=== PATIENT | male | born 1965 | race Caucasian/White ===

== ENCOUNTER 2020-04-15 12:55 | Emergency (ER) | payer OTHER ==
[~2020-04-15] VITALS: Ht 167 cm; Wt 84.8 kg
--- NOTE | 2020-04-15 13:28 | ED Integumentary General ---
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 States he felt dizzy after incident from pain. Last tetanus 4 months ago. No other complaints. Timing/Duration: just prior to arrival Severity: mild Allergies and Home Medications Allergies Coded Allergies: Penicillins (Verified Allergy, Unknown, 04/15/20) Home Medications Sulfamethoxazole/Trimethoprim 1 Each Tablet, 1 EACH PO BID Prescribed by: EDIE SALEH on 04/15/20 1340 Patient Home Medication List Home Medication List Reviewed: Yes Review of Systems Review of Systems Constitutional: no symptoms reported EENTM: no symptoms reported Respiratory: no symptoms reported Cardiovascular: no symptoms reported Gastrointestinal: no symptoms reported Genitourinary: no symptoms reported Musculoskeletal: no symptoms reported Skin: see HPI Psychiatric/Neurological: No Symptoms Reported Endocrine: No Symptoms Reported Hematologic/Lymphatic: No Symptoms Reported Past Baqgdjh-Lftlpy-Oxdnje Hx Patient Social History Recent Foreign Travel: No Contact w/Someone Who Travel: No Physical Exam Vital Signs Vital Signs - First Documented 04/15/20 13:28 Temp 36.8 Pulse 67 Resp 18 B/P (MAP) 177/81 (113) Pulse Ox 99 Capillary Refill : General Appearance: WD/WN, no apparent distress HEENT: PERRL/EOMI, pharynx normal Neck: full range of motion, normal inspection Cardiovascular: regular rate, rhythm, no murmur Respiratory: lungs clear, normal breath sounds Extremities: normal range of motion, non-tender, normal inspection, normal capillary refill Neurologic/Psychiatric: no motor/sensory deficits, alert, normal mood/affect, oriented x 3 Skin: normal color, warm/dry Skin Problem Location: other (distal tip of left fifth finger) Skin Problem Character: other ( partial avulsion of left fifth finger nail plate. Neurovascular intact distal to injury. ) Progress/Results/Core Measures Results/Orders Lab Results Laboratory Tests Test 04/15/20 13:15 Range/Units White Blood Count 17.0 H 4.3-11.0 10^3/uL Red Blood Count 3.53 L 4.30-5.52 10^6/uL Hemoglobin 9.3 L 13.3-17.7 g/dL Hematocrit 30 L 40-54 % Mean Corpuscular Volume 84 80-99 fL Mean Corpuscular Hemoglobin 26 25-34 pg Mean Corpuscular Hemoglobin Concent 31 L 32-36 g/dL Red Cell Distribution Width 13.9 10.0-14.5 % Platelet Count 350 130-400 10^3/uL Mean Platelet Volume 10.8 9.0-12.2 fL Immature Granulocyte % (Auto) 0 % Neutrophils (%) (Auto) 75 42-75 % Lymphocytes (%) (Auto) 14 12-44 % Monocytes (%) (Auto) 9 0-12 % Eosinophils (%) (Auto) 2 0-10 % Basophils (%) (Auto) 1 0-10 % Neutrophils # (Auto) 12.7 H 1.8-7.8 10^3/uL Lymphocytes # (Auto) 2.4 1.0-4.0 10^3/uL Monocytes # (Auto) 1.5 H 0.0-1.0 10^3/uL Eosinophils # (Auto) 0.3 0.0-0.3 10^3/uL Basophils # (Auto) 0.1 0.0-0.1 10^3/uL Immature Granulocyte # (Auto) 0.1 0.0-0.1 10^3/uL Neutrophils % (Manual) 72 % Lymphocytes % (Manual) 16 % Monocytes % (Manual) 5 % Eosinophils % (Manual) 5 % Basophils % (Manual) 0 % Band Neutrophils 1 % Reactive Lymphocytes 1 % Polychromasia SLIGHT Sodium Level 138 135-145 MMOL/L Potassium Level 4.0 3.6-5.0 MMOL/L Chloride Level 106 98-107 MMOL/L Carbon Dioxide Level 24 21-32 MMOL/L Anion Gap 8 5-14 MMOL/L Blood Urea Nitrogen 13 7-18 MG/DL Creatinine 0.98 0.60-1.30 MG/DL Estimat Glomerular Filtration Rate > 60 BUN/Creatinine Ratio 13 Glucose Level 116 H 70-105 MG/DL Calcium Level 8.7 8.5-10.1 MG/DL Corrected Calcium 8.5 8.5-10.1 MG/DL Total Bilirubin 0.2 0.1-1.0 MG/DL Aspartate Amino Transf (AST/SGOT) 20 5-34 U/L Alanine Aminotransferase (ALT/SGPT) 23 0-55 U/L Alkaline Phosphatase 92 40-136 U/L Total Protein 7.7 6.4-8.2 GM/DL Albumin 4.2 3.2-4.5 GM/DL My Orders Orders - EDIE SALEH Jj HILLS Ekg Tracing (04/15/20 13:22) Cbc With Automated Diff (04/15/20 13:22) Comprehensive Metabolic Panel (04/15/20 13:22) Iv Heplock-Insert (Order) (04/15/20 13:22) Finger(S) (04/15/20 13:22) Manual Differential (04/15/20 13:15) Acetaminophen Tablet (Tylenol Tablet) (04/15/20 14:30) Medications Given in ED Current Medications Medications Dose Ordered Sig/Ortiz Route Start Time Stop Time Status Last Admin Dose Admin Acetaminophen 1,000 mg ONCE ONCE PO 04/15/20 14:30 04/15/20 14:28 DC 04/15/20 14:26 1,000 MG Vital Signs/I&O 04/15/20 04/15/20 13:28 14:28 Temp 36.8 Pulse 67 68 Resp 18 16 B/P (MAP) 177/81 (113) 137/71 Pulse Ox 99 97 Progress Progress Note : Progress Note Upon arrival, his spouse was very adamant that patient has been having multiple episodes of syncope over the past few months, states she would like him evaluated for anemia and a cardiac workup. Discussed this with the patient and he denies any episodes of syncope or chest pain. Does admit to feeling dizzy when episode occurred however he attributes this to pain. Will order basic labs and EKG at this time. He denies fevers, chills, cough, shortness of breath, nausea, vomiting, abdominal pain. EKG reviewed and is unremarkable. Labs reviewed noted to have elevated WBC-17, and noted to be anemic with Hgb-9. Discussed findings with patient and he stated his PCP is currently working him up for anemia. Unknown cause of WBC elevation as he reports no systemic symptoms. He will be placed on Bactrim prophylactically due to injury and instructed to follow up with PCP. Left fifth finger noted to have partial avulsion of nail plate, epidermis still intact. Radiographs indicate non-displaced distal tuft fracture. Area was cleansed with chlorhexidine and saline wash, tolerated well. Applied dry gauze and splint. Discussed with him that he will likely lose his nail. However, he was instructed to leave this in place as this acts as a natural splint for his distal tuft fracture. Reviewed discharge instructions and he is agreeable with plan. EKG : EKG Time: 13:13 Rate: 71 Rhythm: Normal Sinus Comment Previous inferior ID Diagnostic Imaging Diagonstic Imaging: Xray Plain Films/CT/US/NM/MRI: other (finger) Comments NAME: YUSUF CAMPOS [facility] REC#: [id number] PT STATUS: REG ER : 1965 PHYSICIAN: EDIE SALEH APRN ADMIT DATE: 04/15/20/ER Draft Date of Exam:04/15/20 FINGER(S) INDICATION: Left 5th finger injury 3 views of the left 5th finger show a nondisplaced fracture of the distal shaft of the distal phalanx of the left 5th finger. This is of the base of the tuft. IMPRESSION: Nondisplaced fracture of the base of the tuft of the distal phalanx of the left 5th finger. Dictated on workstation # [id number] Dict: 04/15/20 1344 Trans: 04/15/20 1347 [facility] [id number] Interpreted by: EMRE SEYMOUR MD Electronically signed by: Departure Impression Primary Impression: Partial avulsion of fingernail Disposition: 01 HOME, SELF-CARE Condition: Improved Departure-Patient Inst. Decision time for Depature: 13:55 Referrals: NO,LOCAL PHYSICIAN (PCP/Family) Primary Care Physician Patient Instructions: Wound Care ED Add. Discharge Instructions: Plan: 1. Discharge home. Your fingernail will likely fall off. Keep in place at this time as this works as a natural splint for your finger. 2. May take Tylenol or Ibuprofen as needed for pain per package instructions. 3. Follow up with your primary care provider next week to evaluate your anemia. 4. Keep hand elevated for the next 24-48 hours as much as you are able to reduce swelling and pain. 5. Use splint for next 3 weeks. May remove to shower. Pat dry. Cover with dry bandage. 6. Take antibiotics as directed and complete full course. 7. Return for any new or concerning symptoms. All discharge instructions reviewed with patient and/or family. Voiced understanding. Scripts Sulfamethoxazole/Trimethoprim (Bactrim Ds Tablet) 1 Each Tablet 1 EACH PO BID for 7 Days, #14 TAB 0 Refills Prov: EDIE SALEH [employer] ADMINISTRATOR 04/15/20 EDIE SALEH APRN Apr 15, 2020 13:28
[2020-04-15 13:29] LABS: BASOPHILS # (AUTO) 0.1 10^3/uL (0.0-0.1); BASOPHILS % (AUTO) 1 % (0-10); EOSINOPHILS # (AUTO) 0.3 10^3/uL (0.0-0.3); EOSINOPHILS % (AUTO) 2 % (0-10); HEMATOCRIT 30 % (40-54); HEMOGLOBIN 9.3 g/dL (13.3-17.7); LYMPHOCYTES # (AUTO) 2.4 10^3/uL (1.0-4.0); LYMPHOCYTES % (AUTO) 14 % (12-44); MEAN CORPUSCULAR HEMOGLOBIN 26 pg (25-34); MEAN CORPUSCULAR HGB CONC 31 g/dL (32-36); MEAN CORPUSCULAR VOLUME 84 fL (80-99); MEAN PLATELET VOLUME 10.8 fL (9.0-12.2); MONOCYTES # (AUTO) 1.5 10^3/uL (0.0-1.0); MONOCYTES % (AUTO) 9 % (0-12); NEUTROPHILS # (AUTO) 12.7 10^3/uL (1.8-7.8); NEUTROPHILS % (AUTO) 75 % (42-75); PLATELET COUNT 350 10^3/uL (130-400)
[2020-04-15 13:33] LABS: ALBUMIN 4.2 GM/DL (3.2-4.5); CHLORIDE 106 MMOL/L (98-107)
[2020-04-15 13:34] LABS: SODIUM 138 MMOL/L (135-145)
[2020-04-15 13:35] LABS: CALCIUM 8.7 MG/DL (8.5-10.1)
[2020-04-15 13:36] LABS: GLUCOSE 116 MG/DL (70-105); TOTAL PROTEIN 7.7 GM/DL (6.4-8.2)
[2020-04-15 13:37] LABS: CARBON DIOXIDE 24 MMOL/L (21-32)
[2020-04-15 13:38] LABS: BILIRUBIN,TOTAL 0.2 MG/DL (0.1-1.0)
[2020-04-15 13:39] LABS: ALKALINE PHOSPHATASE 92 U/L (40-136); CREATININE SERUM 0.98 MG/DL (0.60-1.30)
[2020-04-15 13:40] LABS: GFR ESTIMATED > 60
[2020-04-15 13:41] LABS: BUN/CREATININE RATIO 13
[2020-04-15 13:43] LABS: ALANINE AMINOTRANSFERASE 23 U/L (0-55)
[2020-04-15] MEDS ORDERED: SULF1TAB35 PO (13:44)
--- NOTE | 2020-04-15 13:47 | Diagnostic Imaging Report ---
INDICATION: Left 5th finger injury 3 views of the left 5th finger show a nondisplaced fracture of the distal shaft of the distal phalanx of the left 5th finger. This is of the base of the tuft. IMPRESSION: Nondisplaced fracture of the base of the tuft of the distal phalanx of the left 5th finger. Dictated by: Dictated on workstation # [id number]
[2020-04-15 14:20] LABS: BAND NEUTROPHILS 1 %; BASOPHILS % (MANUAL) 0 %; EOSINOPHILS % (MANUAL) 5 %; LYMPHOCYTES % (MANUAL) 16 %; MONOCYTES % (MANUAL) 5 %; NEUTROPHILS % (MANUAL) 72 %; REACTIVE LYMPHOCYTES 1 %
[2020-04-15 14:21] LABS: POLYCHROMASIA SLIGHT
[2020-04-15 14:28] VITALS: BP 137/71
[2020-04-15] MEDS ORDERED: ACETAMINOPHEN 500 MG TAB (TYLENOL) PO ONE (14:30)
== END 2020-04-15 14:28 | disposition home or self-care (01) ==
LOC: ER 12:59
DX: S62.667A Nondisplaced fracture of distal phalanx of left little finger, initial encounter for closed fracture (principal); S61.317A Laceration without foreign body of left little finger with damage to nail, initial encounter; Z88.0 Allergy status to penicillin; W23.1XXA Caught, crushed, jammed, or pinched between stationary objects, initial encounter
CPT/HCPCS: 29130; 36415; 73140; 80053; 85007; 85027; 93005

== ENCOUNTER 2022-01-17 11:29 | Inpatient (IN) | payer SELFPAY ==
[2022-01-17] VITALS (10 sets, daily range): BP systolic 101–139; BP diastolic 50–77
[~2022-01-17] VITALS: Ht 160 cm; Wt 81.0 kg
[~2022-01-17 11:29] MED LIST: SULF1TAB38 PO
--- NOTE | 2022-01-17 11:41 | ED Chest Pain ---
General Chief Complaint: Chest Pain Stated Complaint: LT ARM PAIN, BURNING IN CHEST Source: patient Exam Limitations: no limitations History of Present Illness Date Seen by Provider: Jan 17, 2022 Time Seen by Provider: 11:39 Initial Comments To ER with epigastric burning sensation and pain in the volar aspect of the left forearm. 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 He does have a coronary stent placed about 4 years ago by a feller seam operator (Dr Loving) in [place]. He follows with [facility]. Only takes atorvastatin, baby aspirin, multivitamin, and TYlenol PRN Timing/Duration: 1-3 hours Severity/Quality: moderate Radiation: no radiation Activities at Onset: none Prior CP/Workup: no prior chest pain ASA po PARLIAMENTARY COUNSEL: No NTG SL PARLIAMENTARY COUNSEL: No Associated Symptoms: denies symptoms Allergies and Home Medications Allergies Coded Allergies: Penicillins (Verified Allergy, Unknown, 04/15/20) Patient Home Medication List Home Medication List Reviewed: Yes Sulfamethoxazole/Trimethoprim (Bactrim Ds Tablet) 1 Each Tablet, 1 EACH PO BID Prescribed by: EDIE SALEH on 04/15/20 1344 Review of Systems Review of Systems Constitutional: see HPI EENTM: No Symptoms Reported Respiratory: No Symptoms Reported Cardiovascular: See HPI, Chest Pain Gastrointestinal: No Symptoms Reported Genitourinary: No Symptoms Reported Musculoskeletal: no symptoms reported Skin: no symptoms reported Psychiatric/Neurological: No Symptoms Reported Endocrine: No Symptoms Reported Hematologic/Lymphatic: No Symptoms Reported Past Zncfesi-Wyeikx-Ifojqf Hx Patient Social History Tobacco Use?: Yes Tobacco type used: Cigarettes Smoking Status: Current Everyday Smoker Use of E-Cig and/or Vaping dev: No Substance use?: No Alcohol Use?: No Pt feels they are or have been: No Immunizations Up To Date Tetanus Booster (TDap): Less than 5yrs Seasonal Allergies Seasonal Allergies: No Past Medical History Surgeries: Yes Coronary Stent Respiratory: No Cardiac: Yes Heart Attack, Hypertension Neurological: No Genitourinary: No Gastrointestinal: Yes Gastroesophageal Reflux Musculoskeletal: No Endocrine: No HEENT: No Cancer: No Psychosocial: No Integumentary: No Blood Disorders: Yes (ANEMIA) Physical Exam Vital Signs Vital Signs - First Documented 01/17/22 11:32 Pulse 62 Resp 18 B/P (MAP) 136/96 (109) Pulse Ox 97 O2 Delivery Room Air Capillary Refill : Height, Weight, BMI Height: '" Weight: lbs. oz. kg; 30.00 BMI Method: General Appearance: No Apparent Distress, WD/WN Neck: Full Range of Motion, Normal Inspection Respiratory: No Accessory Muscle Use, No Respiratory Distress Cardiovascular: Regular Rate, Rhythm, Normal Peripheral Pulses Gastrointestinal: Normal Bowel Sounds, Non Tender, Soft Extremity: Normal Capillary Refill, Normal Inspection, Other (Volar left forearm normal appearance with some tenderness to palpation. Normal appearance without redness or swelling or ecchymosis. The radial pulse is +2 bilaterally) Neurologic/Psychiatric: Alert, Oriented x3 Skin: Normal Color, Warm/Dry Progress/Results/Core Measures Results/Orders Lab Results Laboratory Tests Test 01/17/22 11:45 01/17/22 13:36 Range/Units White Blood Count 13.0 H 4.3-11.0 10^3/uL Red Blood Count 4.61 4.30-5.52 10^6/uL Hemoglobin 13.6 13.3-17.7 g/dL Hematocrit 41 40-54 % Mean Corpuscular Volume 88 80-99 fL Mean Corpuscular Hemoglobin 30 25-34 pg Mean Corpuscular Hemoglobin Concent 34 32-36 g/dL Red Cell Distribution Width 14.5 10.0-14.5 % Platelet Count 223 130-400 10^3/uL Mean Platelet Volume 11.3 9.0-12.2 fL Immature Granulocyte % (Auto) 0 % Neutrophils (%) (Auto) 75 42-75 % Lymphocytes (%) (Auto) 15 12-44 % Monocytes (%) (Auto) 8 0-12 % Eosinophils (%) (Auto) 1 0-10 % Basophils (%) (Auto) 1 0-10 % Neutrophils # (Auto) 9.8 H 1.8-7.8 10^3/uL Lymphocytes # (Auto) 1.9 1.0-4.0 10^3/uL Monocytes # (Auto) 1.0 0.0-1.0 10^3/uL Eosinophils # (Auto) 0.2 0.0-0.3 10^3/uL Basophils # (Auto) 0.1 0.0-0.1 10^3/uL Immature Granulocyte # (Auto) 0.1 0.0-0.1 10^3/uL Prothrombin Time 12.1 L 12.2-14.7 SEC INR Comment 0.9 0.8-1.4 Activated Partial Thromboplast Time 30 24-35 SEC Sodium Level 140 135-145 MMOL/L Potassium Level 4.0 3.6-5.0 MMOL/L Chloride Level 105 98-107 MMOL/L Carbon Dioxide Level 21 21-32 MMOL/L Anion Gap 14 5-14 MMOL/L Blood Urea Nitrogen 15 7-18 MG/DL Creatinine 0.96 0.60-1.30 MG/DL Estimat Glomerular Filtration Rate 91 BUN/Creatinine Ratio 16 Glucose Level 156 H 70-105 MG/DL Calcium Level 9.1 8.5-10.1 MG/DL Corrected Calcium 8.9 8.5-10.1 MG/DL Magnesium Level 2.0 1.6-2.4 MG/DL Total Bilirubin 0.4 0.1-1.0 MG/DL Aspartate Amino Transf (AST/SGOT) 31 5-34 U/L Alanine Aminotransferase (ALT/SGPT) 38 0-55 U/L Alkaline Phosphatase 94 40-136 U/L Myoglobin 149.6 H 10.0-92.0 NG/ML Troponin I < 0.028 0.071 H <0.028 NG/ML B-Type Natriuretic Peptide 18.6 <100.0 PG/ML Total Protein 7.8 6.4-8.2 GM/DL Albumin 4.2 3.2-4.5 GM/DL Lipase 205 H 8-78 U/L My Orders Orders - GUDELIA KENNY PERLITE GRINDER Cbc With Automated Diff (01/17/22 11:33) Magnesium (01/17/22 11:33) Chest 1 View, Ap/Pa Only (01/17/22 11:33) Ekg Tracing (01/17/22 11:33) Comprehensive Metabolic Panel (01/17/22 11:33) Myoglobin Serum (01/17/22 11:33) Protime With Inr (01/17/22 11:33) Partial Thromboplastin Time (01/17/22 11:33) O2 (01/17/22 11:33) Monitor-Rhythm Ecg Trace Only (01/17/22 11:33) Lipid Panel (01/18/22 06:00) Ed Iv/Invasive Line Start (01/17/22 11:33) Bnp [place] (01/17/22 11:33) Troponin I Shukri (01/17/22 11:33) Aspirin Chewable Tablet (Baby Aspirin Ch (01/17/22 11:45) Antacid Suspension (Mylanta Suspension (01/17/22 11:45) Lidocaine 2% Viscous 15 Ml (Xylocaine Vi (01/17/22 11:45) Lipase (01/17/22 12:02) Nitroglycerin 0.4 Mg Btl 25's (Nitrostat (01/17/22 12:15) Nitroglycerin 0.4 Mg Btl 25's (Nitrostat (01/17/22 12:09) Ct Abdomen/Pelvis W (01/17/22 12:28) Fentanyl Inj (Sublimaze Injection) (01/17/22 12:45) Lactated Ringers (Lr 1000 Ml Iv Solution (01/17/22 12:45) Iohexol Injection (Omnipaque 350 Mg/Ml 1 (01/17/22 13:15) Received Contrast (Hold Metformin- Contr (01/17/22 13:15) Ns (Ivpb) (Sodium Chloride 0.9% Ivpb Bag (01/17/22 13:15) Sodium Chloride Flush (Catheter Flush Sy (01/17/22 13:15) Troponin I [place] (01/17/22 13:25) Enoxaparin Injection (Lovenox Injection) (01/17/22 14:45) Clopidogrel Tablet (Plavix Tablet) (01/17/22 14:45) Medications Given in ED Current Medications Medications Dose Ordered Sig/Ortiz Route Start Time Stop Time Status Last Admin Dose Admin Al Hydrox/Mg Hydrox/Simethicone 30 ml ONCE ONCE PO 01/17/22 11:45 01/17/22 11:46 DC 01/17/22 11:49 30 ML Aspirin 324 mg ONCE ONCE PO 01/17/22 11:45 01/17/22 11:46 DC 01/17/22 11:48 324 MG Fentanyl Citrate 50 mcg ONCE ONCE IVP 01/17/22 12:45 01/17/22 12:46 DC 01/17/22 12:45 50 MCG Lidocaine HCl 15 ml ONCE ONCE PO 01/17/22 11:45 01/17/22 11:46 DC 01/17/22 11:49 15 ML Nitroglycerin 1 TAB Q 5 MIN X 3 NEEDED PRN SL 01/17/22 12:15 01/17/22 12:12 0.4 MG Vital Signs/I&O 01/17/22 11:32 Pulse 62 Resp 18 B/P (MAP) 136/96 (109) Pulse Ox 97 O2 Delivery Room Air Departure Communication (Admissions) NAME: YUSUF CAMPOS [facility] REC#: [id number] PT STATUS: REG ER : 1965 PHYSICIAN: GUDELIA KENNY PERLITE GRINDER ADMIT DATE: 01/17/22/ER Draft Date of Exam:01/17/22 CT ABDOMEN/PELVIS W PROCEDURE: CT abdomen and pelvis with contrast. TECHNIQUE: Multiple contiguous axial images were obtained through the abdomen and pelvis after administration of intravenous contrast. Auto Exposure Controls were utilized during the CT exam to meet ALARA standards for radiation dose reduction. All CT scans use one or more of the following dose optimizing techniques: automated exposure control, MA and/or KvP adjustment based on patient size and exam type or iterative reconstruction. INDICATION: Epigastric pain and elevated lipase No focal hepatic lesion. There does appear to be small stone or sludge within the lumen of the gallbladder. No biliary ductal dilatation is identified. There is no evidence of pancreatic lesion or inflammation. No adrenal gland abnormality identified. There is no focal splenic abnormality apart from calcified granuloma. Kidneys are unremarkable without hydronephrosis. There is mild atherosclerotic calcification of the abdominal aorta with apparent thrombosis of the left common iliac and external iliac artery. Unopacified urinary bladder is unremarkable. IMPRESSION: No definite acute abnormality seen within the abdomen or pelvis although there is thrombosis of left common and external iliac arteries. Note is made of cholecystolithiasis. Dictated on workstation # [id number] Dict: 01/17/22 1335 Trans: 01/17/22 1345 [facility] [id number] Interpreted by: KEM MCMILLAN MD Electronically signed by: Family Conversation NAME: YUSUF CAMPOS [facility] REC#: [id number] PT STATUS: REG ER : 1965 PHYSICIAN: GUDELIA KENYN APRN ADMIT DATE: 01/17/22/ER Draft Date of Exam:01/17/22 CHEST 1 VIEW, AP/PA ONLY CLINICAL INDICATION: Patient complains of burning where his ribs, together. 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 EXAM: Portable chest x-ray upright view. COMPARISON: None. FINDINGS: Lungs/pleura: There is mild bibasilar atelectasis. Otherwise, lungs are clear. There is no pneumothorax. There is no pleural effusion. Mediastinum: Unremarkable. Pulmonary vasculature: Unremarkable. Heart: Unremarkable. Bones/extrathoracic soft tissue: There are degenerative spurs involving the spine. IMPRESSION: There is no radiographic evidence of acute cardiopulmonary process. Dictated on workstation # [id number] Dict: 01/17/22 1239 Trans: 01/17/22 1246 [id number] Interpreted by: FRANCISCO VELOZ MD Electronically signed by: EKG shows sinus rhythm at 59, inferior Q waves, no ST segment changes 1357-repeat troponin pending. CT abdomen pelvis does not show any inflammation around the pancreas (lipase is a little elevated). There is thrombosis of the left common and external iliac artery. He denies any current or previous pains numbness or coldness or claudication symptoms of left lower extremity now or at any time. Dorsalis pedis pulses +2 bilaterally with warm feet bilaterally. We will have him follow-up with cardiology in regards to this finding, may need referral to vascular surgery. However, he is asymptomatic in regards to this incidental finding and clinically this is a non occlusive thrombus though the CT did no go inferiorly enough to evaluate for reconstitution of the femoral artery. 1506-spoke with Dr. Gastelum and Dr. Bowman. Will admit on treatment dose Lovenox, Plavix bolus here then 75 daily. Patient has been n.p.o. since this morning and I have asked him to remain n.p.o. until Dr. Bowman sees him and determines a plan. Impression Primary Impression: NSTEMI (non-ST elevated myocardial infarction) Additional Impressions: Iliac artery thrombosis, left Pancreatitis Disposition: ADMITTED INPATIENT Condition: Stable Admissions Decision to Admit Reason: Admit from ER (General) Decision to Admit/Date: Jan 17, 2022 Time/Decision to Admit Time: 14:52 Departure-Patient Inst. Decision time for Depature: 13:59 Referrals: NO,LOCAL PHYSICIAN (PCP/Family) Primary Care Physician GUDELIA KENNY APRN Jan 17, 2022 11:41
[2022-01-17] MEDS ORDERED: ASPIRIN 81 MG CHEW (CHILDREN'S ASA) PO ONE (11:45)
[2022-01-17] MEDS ORDERED: ANTACID SUSP 30 ML UDC (MYLANTA) PO ONE (11:45)
[2022-01-17] MEDS ORDERED: LIDOCAINE 2% VISCOUS 15 ML UDC PO ONE (11:45)
[2022-01-17 11:52] LABS: BASOPHILS # (AUTO) 0.1 10^3/uL (0.0-0.1); BASOPHILS % (AUTO) 1 % (0-10); EOSINOPHILS # (AUTO) 0.2 10^3/uL (0.0-0.3); EOSINOPHILS % (AUTO) 1 % (0-10); HEMATOCRIT 41 % (40-54); HEMOGLOBIN 13.6 g/dL (13.3-17.7); LYMPHOCYTES # (AUTO) 1.9 10^3/uL (1.0-4.0); LYMPHOCYTES % (AUTO) 15 % (12-44); MEAN CORPUSCULAR HEMOGLOBIN 30 pg (25-34); MEAN CORPUSCULAR HGB CONC 34 g/dL (32-36); MEAN CORPUSCULAR VOLUME 88 fL (80-99); MEAN PLATELET VOLUME 11.3 fL (9.0-12.2); MONOCYTES % (AUTO) 8 % (0-12); NEUTROPHILS # (AUTO) 9.8 10^3/uL (1.8-7.8); NEUTROPHILS % (AUTO) 75 % (42-75); PLATELET COUNT 223 10^3/uL (130-400)
[2022-01-17 12:02] LABS: ALBUMIN 4.2 GM/DL (3.2-4.5)
[2022-01-17 12:03] LABS: CALCIUM 9.1 MG/DL (8.5-10.1)
[2022-01-17 12:04] LABS: TOTAL PROTEIN 7.8 GM/DL (6.4-8.2)
[2022-01-17 12:06] LABS: BILIRUBIN,TOTAL 0.4 MG/DL (0.1-1.0)
[2022-01-17 12:08] LABS: CREATININE SERUM 0.96 MG/DL (0.60-1.30)
[2022-01-17] MEDS ORDERED: NITROGLYCERIN 0.4 MG SL TABS BTL 25'S SL ONE (12:09)
[2022-01-17] MEDS ORDERED: NITROGLYCERIN 0.4 MG SL TABS BTL 25'S SL PRN (12:15)
[2022-01-17] MEDS ORDERED: LACTATED RINGERS 1,000 ML IV SCH (12:45)
[2022-01-17] MEDS ORDERED: fentaNYL INJ 100 MCG/2 ML AMP IVP ONE (12:45)
--- NOTE | 2022-01-17 12:47 | Diagnostic Imaging Report ---
CLINICAL INDICATION: Patient complains of burning where his ribs, together. 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 EXAM: Portable chest x-ray upright view. COMPARISON: None. FINDINGS: Lungs/pleura: There is mild bibasilar atelectasis. Otherwise, lungs are clear. There is no pneumothorax. There is no pleural effusion. Mediastinum: Unremarkable. Pulmonary vasculature: Unremarkable. Heart: Unremarkable. Bones/extrathoracic soft tissue: There are degenerative spurs involving the spine. IMPRESSION: There is no radiographic evidence of acute cardiopulmonary process. Dictated by: Dictated on workstation # [id number]
[2022-01-17] MEDS ORDERED: HOLD METFORMIN - RECEIVED CONTRAST 20 ML VIAL IV SCH (13:15)
[2022-01-17] MEDS ORDERED: NS 100 ML (IVPB) BAG IV ONE (13:15)
[2022-01-17] MEDS ORDERED: IOHEXOL 350 MG/ML 100 ML (OMNIPAQUE 350) VIAL IV ONE (13:15)
[2022-01-17] MEDS ORDERED: CATHETER FLUSH 10 ML SYR IV PRN (13:15)
--- NOTE | 2022-01-17 13:45 | Diagnostic Imaging Report ---
PROCEDURE: CT abdomen and pelvis with contrast. TECHNIQUE: Multiple contiguous axial images were obtained through the abdomen and pelvis after administration of intravenous contrast. Auto Exposure Controls were utilized during the CT exam to meet ALARA standards for radiation dose reduction. All CT scans use one or more of the following dose optimizing techniques: automated exposure control, MA and/or KvP adjustment based on patient size and exam type or iterative reconstruction. INDICATION: Epigastric pain and elevated lipase No focal hepatic lesion. There does appear to be small stone or sludge within the lumen of the gallbladder. No biliary ductal dilatation is identified. There is no evidence of pancreatic lesion or inflammation. No adrenal gland abnormality identified. There is no focal splenic abnormality apart from calcified granuloma. Kidneys are unremarkable without hydronephrosis. There is mild atherosclerotic calcification of the abdominal aorta with apparent thrombosis of the left common iliac and external iliac artery. Unopacified urinary bladder is unremarkable. IMPRESSION: No definite acute abnormality seen within the abdomen or pelvis although there is thrombosis of left common and external iliac arteries. Note is made of cholecystolithiasis. Dictated by: Dictated on workstation # [id number]
[2022-01-17 13:52] LABS: INR 0.9 (0.8-1.4); PROTHROMBIN TIME PATIENT 12.1 SEC (12.2-14.7)
[2022-01-17] MEDS ORDERED: CLOPIDOGREL 300 MG (PLAVIX) TABLET PO ONE (14:45)
[2022-01-17] MEDS ORDERED: ENOXAPARIN 80 MG/0.8 ML (LOVENOX) SYR SC ONE ×2 (14:45→15:15)
--- NOTE | 2022-01-17 15:01 | Consultation-Cardiology ---
HPI-Cardiology Cardiology Consultation: Date of Consultation 01/17/22 Time Seen by a Provider: 15:10 Date of Admission 01-17-22 Attending Physician No,Local Physician Admitting Physician Admitting Physician: Attending Physician: Consulting Physician Charity Bowman MD HPI: Chief Complaint: NSTEMI Mr. Flor is a 57 yr old male being admitted from the ED with NSTEMI. 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 He reports assoc diaphoresis and nausea. He reports the discomfort persisted for approx an hour. He states the discomfort has resolved. He reports he has pain similar to this prior to cardiac stenting in 2007 and 2012 in [place], [place]. He reports his primary boarder hand is Dr. Kapadia at [facility] in [place], [place]. He continues to smoke cigs, 4-5 cigs per day. He reports he has not had any palpitations, syncope, near syncope or LE swelling. Review of Systems-Cardiology Review of Systems Constitutional: No chills, No fever, No malaise Eyes: No vision change Ears/Nose/Throat: No epistaxis, No recent hearing loss Respiratory: As described under HPI Cardiovascular: As described under HPI Gastrointestinal: As described under HPI Genitourinary: No dysuria, No hematuria Musculoskeletal: no symptoms reported Skin: No rash on exposed areas, No ulcerations on exposed areas Psychiatric/Neurological: No anxiety, No depression, No seizure, No focal weakness, No syncope Hematologic: No bleeding abnormalities LOI-Ejpizz-Nxmmtu Hx Patient Social History Smoking Status: Current Everyday Smoker Have you traveled recently?: No Alcohol Use?: No Pt feels they are or have been: No Tobacco type used: Cigarettes Immunizations Up To Date Tetanus Booster (TDap): Less than 5yrs Past Medical History PMH As described under Assessment. Family Medical History Family Medical History: He reports his father had CAD, but he does not know any details. Allergies and Home Medications Allergies Coded Allergies: Penicillins (Verified Allergy, Unknown, 04/15/20) Patient Home Medication List Sulfamethoxazole/Trimethoprim (Bactrim Ds Tablet) 1 Each Tablet, 1 EACH PO BID Prescribed by: EDIE SALEH on 04/15/20 1344 Physical Exam-Cardiology Physical Exam Vital Signs/I&O 01/17/22 11:32 Pulse 62 Resp 18 B/P (MAP) 136/96 (109) Pulse Ox 97 O2 Delivery Room Air Capillary Refill : Less Than 3 Seconds Constitutional: AAO x 3, well-developed, well-nourished HEENT: PERRL, hearing is well preserved, oral hygience is good Neck: No carotid bruit; carotid pulses are 2 + bilaterally Respiratory: No accessory muscle use, No respiratory distress; chest expansion is symmetric, chest is bilaterally symmetric, other (prolonged exp phase) Cardiovascular: regular rate-rhythm; No JVD; S1 and S2 Gastrointestinal: No tender; soft, round, audible bowel sounds Extremities: no lower extremity edema bilateral Neurologic/Psychiatric: grossly intact (moves all extremities) Skin: No rash on exposed areas, No ulcerations on exposed areas Data Review Labs Laboratory Tests 01/17/22 11:45: White Blood Count 13.0H, Red Blood Count 4.61, Hemoglobin 13.6, Hematocrit 41, Mean Corpuscular Volume 88, Mean Corpuscular Hemoglobin 30, Mean Corpuscular Hemoglobin Concent 34, Red Cell Distribution Width 14.5, Platelet Count 223, Mean Platelet Volume 11.3, Immature Granulocyte % (Auto) 0, Neutrophils (%) (Auto) 75, Lymphocytes (%) (Auto) 15, Monocytes (%) (Auto) 8, Eosinophils (%) (Auto) 1, Basophils (%) (Auto) 1, Neutrophils # (Auto) 9.8H, Lymphocytes # (Auto) 1.9, Monocytes # (Auto) 1.0, Eosinophils # (Auto) 0.2, Basophils # (Auto) 0.1, Immature Granulocyte # (Auto) 0.1, Prothrombin Time 12.1L, INR Comment 0.9, Activated Partial Thromboplast Time 30, Sodium Level 140, Potassium Level 4.0, Chloride Level 105, Carbon Dioxide Level 21, Anion Gap 14, Blood Urea Nitrogen 15, Creatinine 0.96, Estimat Glomerular Filtration Rate 91, BUN/Creatinine Ratio 16, Glucose Level 156H, Calcium Level 9.1, Corrected Calcium 8.9, Magnesium Level 2.0, Total Bilirubin 0.4, Aspartate Amino Transf (AST/SGOT) 31, Alanine Aminotransferase (ALT/SGPT) 38, Alkaline Phosphatase 94, Myoglobin 149.6H, Troponin I < 0.028, B-Type Natriuretic Peptide 18.6, Total Protein 7.8, Albumin 4.2, Lipase 205H 01/17/22 13:36: Troponin I 0.071H Radiology NAME: YUSUF FLOR MED REC#: [id number] PT STATUS: REG ER : 1965 PHYSICIAN: GUDELIA KENNY APRN ADMIT DATE: 01/17/22/ER Draft Date of Exam:01/17/22 CHEST 1 VIEW, AP/PA ONLY CLINICAL INDICATION: Patient complains of burning where his ribs, together. 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 EXAM: Portable chest x-ray upright view. COMPARISON: None. FINDINGS: Lungs/pleura: There is mild bibasilar atelectasis. Otherwise, lungs are clear. There is no pneumothorax. There is no pleural effusion. Mediastinum: Unremarkable. Pulmonary vasculature: Unremarkable. Heart: Unremarkable. Bones/extrathoracic soft tissue: There are degenerative spurs involving the spine. IMPRESSION: There is no radiographic evidence of acute cardiopulmonary process. Dictated on workstation # [id number] Dict: 01/17/22 1239 Trans: 01/17/22 1246 [id number] Interpreted by: FRANCISCO VELOZ MD Electronically signed by: ECG Impression ECG Initial ECG Rhythm: Normal Sinus A/P-Cardiology Assessment/Admission Diagnosis NSTEMI H/O CAD - reports stents x 3 in [place], [place] in 2007; stent x 1 in [place] in 2012 (details unknown) HLD Tobaccoism - cessation advised Discussion and Recomendations NSTEMI - DAPT, tx dosing Lovenox, BB - cardiac cath on 01-18-22 or sooner if indicated Monitor lab closely - replace electrolytes as indicated Request records from Dr. Kapadia Further recs will be based on his hospital course We would like to thank medical services for this consult Clinical Quality Measures AMI/AHF: ASA po Prior to arrival: MORGAN Shrestha Jan 17, 2022 15:01
--- NOTE | 2022-01-17 16:42 | Consultation-Cardiology ---
HPI-Cardiology Cardiology Consultation: Date of Consultation 01/17/22 Time Seen by a Provider: 16:30 Date of Admission Attending Physician Melany,Local Physician Admitting Physician Admitting Physician: Trixie Gastelum DO Attending Physician: Trixie Gastelum DO Consulting Physician AMBER LI MD, MA, FACP, FACC, FSCAI, CCDS HPI: Chief Complaint: Reason for Card consult: NSTEMI Mr. Flor is a 57 yr old male being admitted from the ED with NSTEMI. 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 He reports assoc diaphoresis and nausea. He reports the discomfort persisted for approx an hour. He states the discomfort has resolved. He reports he has pain similar to this prior to cardiac stenting in 2007 and 2012 in [place], [place]. He reports his primary patch press operator is Dr. Kapadia at [facility] in [place], [place]. He continues to smoke cigs, 4-5 cigs per day. He reports he has not had any palpitations, syncope, near syncope or LE swelling. Review of Systems-Cardiology Review of Systems Constitutional: No chills, No fever, No malaise Eyes: No vision change Ears/Nose/Throat: No epistaxis, No recent hearing loss Respiratory: As described under HPI Cardiovascular: As described under HPI Gastrointestinal: As described under HPI Genitourinary: No dysuria, No hematuria Musculoskeletal: no symptoms reported Skin: No rash on exposed areas, No ulcerations on exposed areas Psychiatric/Neurological: No anxiety, No depression, No seizure, No focal weakness, No syncope Hematologic: No bleeding abnormalities IGF-Ocyewx-Wvdruu Hx Patient Social History Smoking Status: Current Everyday Smoker Have you traveled recently?: No Alcohol Use?: No Pt feels they are or have been: No Tobacco type used: Cigarettes Immunizations Up To Date Tetanus Booster (TDap): Less than 5yrs Past Medical History PMH As described under Assessment. Family Medical History Family Medical History: He reports his father had CAD, but he does not know any details. Allergies and Home Medications Allergies Coded Allergies: Penicillins (Verified Allergy, Unknown, 04/15/20) Patient Home Medication List Home Medication List Reviewed: Yes Sulfamethoxazole/Trimethoprim (Bactrim Ds Tablet) 1 Each Tablet, 1 EACH PO BID Prescribed by: EDIE SALEH on 04/15/20 1344 Physical Exam-Cardiology Physical Exam Vital Signs/I&O 01/17/22 01/17/22 11:32 15:28 Pulse 62 64 Resp 18 18 B/P (MAP) 136/96 (109) 149/107 Pulse Ox 97 97 O2 Delivery Room Air Room Air Capillary Refill : Less Than 3 Seconds Constitutional: AAO x 3, well-developed, well-nourished HEENT: PERRL, hearing is well preserved, oral hygience is good Neck: No carotid bruit; carotid pulses are 2 + bilaterally Respiratory: No accessory muscle use, No respiratory distress; chest expansion is symmetric, chest is bilaterally symmetric, other (prolonged exp phase) Cardiovascular: regular rate-rhythm; No JVD; S1 and S2 Gastrointestinal: No tender; soft, round, audible bowel sounds Extremities: no lower extremity edema bilateral Neurologic/Psychiatric: grossly intact (moves all extremities) Skin: No rash on exposed areas, No ulcerations on exposed areas Data Review Labs Laboratory Tests 01/17/22 11:45: White Blood Count 13.0H, Red Blood Count 4.61, Hemoglobin 13.6, Hematocrit 41, Mean Corpuscular Volume 88, Mean Corpuscular Hemoglobin 30, Mean Corpuscular Hemoglobin Concent 34, Red Cell Distribution Width 14.5, Platelet Count 223, Mean Platelet Volume 11.3, Immature Granulocyte % (Auto) 0, Neutrophils (%) (Auto) 75, Lymphocytes (%) (Auto) 15, Monocytes (%) (Auto) 8, Eosinophils (%) (Auto) 1, Basophils (%) (Auto) 1, Neutrophils # (Auto) 9.8H, Lymphocytes # (Auto) 1.9, Monocytes # (Auto) 1.0, Eosinophils # (Auto) 0.2, Basophils # (Auto) 0.1, Immature Granulocyte # (Auto) 0.1, Prothrombin Time 12.1L, INR Comment 0.9, Activated Partial Thromboplast Time 30, Sodium Level 140, Potassium Level 4.0, Chloride Level 105, Carbon Dioxide Level 21, Anion Gap 14, Blood Urea Nitrogen 15, Creatinine 0.96, Estimat Glomerular Filtration Rate 91, BUN/Creatinine Ratio 16, Glucose Level 156H, Calcium Level 9.1, Corrected Calcium 8.9, Magnesium Level 2.0, Total Bilirubin 0.4, Aspartate Amino Transf (AST/SGOT) 31, Alanine Aminotransferase (ALT/SGPT) 38, Alkaline Phosphatase 94, Myoglobin 149.6H, Troponin I < 0.028, B-Type Natriuretic Peptide 18.6, Total Protein 7.8, Albumin 4.2, Lipase 205H 01/17/22 13:36: Troponin I 0.071H A/P-Cardiology Assessment/Admission Diagnosis NSTEMI H/O CAD - reports stents x 3 in [place], [place] in 2007; stent x 1 in [place], [place] in 2012 (details unknown) HLD Tobaccoism - cessation advised Discussion and Recomendations NSTEMI - DAPT, tx dosing Lovenox, BB - cardiac cath on 01-18-22 or sooner if indicated Monitor lab closely - replace electrolytes as indicated Request records from Dr. Kapadia Further recs will be based on his hospital course We would like to thank medical services for this consult Clinical Quality Measures AMI/AHF: ASA po Prior to arrival: AMBER Chavez MD FACP [facility] CCDS Jan 17, 2022 16:42
[2022-01-17] MEDS: NS IV 1000 ML 1,000 ML IV SCH ×3 (16:56→18:36)
[2022-01-17] MEDS ORDERED: diphenhydrAMINE 50 MG/ML INJ (BENADRYL) IVP PRN (18:15)
[2022-01-17] MEDS ORDERED: ONDANSETRON 4 MG (ZOFRAN) ORAL DISSOLVE TAB PO PRN (18:15)
[2022-01-17] MEDS ORDERED: MELATONIN 3 MG TABLET PO PRN (18:15)
[2022-01-17] MEDS ORDERED: ONDANSETRON 4 MG/2 ML (SDV) Z0FRAN IV PRN (18:15)
[2022-01-17] MEDS ORDERED: morphine IMMEDIATE RELEASE 15 MG TABLET PO PRN (18:15)
[2022-01-17] MEDS ORDERED: CALCIUM CARBONATE 500 MG (TUMS) TAB.CHEW PO PRN (18:15)
[2022-01-17] MEDS ORDERED: BISACODYL 10 MG SUPP (DULCOLAX) PR PRN (18:15)
[2022-01-17] MEDS ORDERED: ACETAMINOPHEN 325 MG TABLET PO PRN (18:15)
[2022-01-17] MEDS ORDERED: diphenhydrAMINE 25 MG TAB (BENADRYL) PO PRN (18:15)
[2022-01-17] MEDS ORDERED: ANTACID SUSP 30 ML UDC (MYLANTA) PO PRN (18:15)
[2022-01-17] MEDS ORDERED: MILK OF MAGNESIA 400 MG/5 ML 30 ML UDC PO PRN (18:15)
[2022-01-17] MEDS ORDERED: ONDANSETRON 4 MG/2 ML (SDV) Z0FRAN IVP PRN (18:15)
[2022-01-17] MEDS ORDERED: LACTULOSE SYRUP 10GM/15ML (ENULOSE) 30ML UDC PO PRN (18:15)
[2022-01-17] MEDS ORDERED: morphine INJ 4 MG/ML 1 ML (VIAL/SYRINGE) IV PRN (18:15)
[2022-01-17] MEDS ORDERED: ENOXAPARIN 100 MG/1 ML (LOVENOX) SYR SC SCH (18:15)
[2022-01-17] MEDS ORDERED: PATIENT MAY USE OWN MEDS, ALL PO SCH (18:15)
[2022-01-17] MEDS ORDERED: polyethylene glycoL POWDER 17 GM (MIRALAX) PACK PO PRN (18:15)
[2022-01-17] MEDS ORDERED: ENOXAPARIN 80 MG/0.8 ML (LOVENOX) SYR SC SCH (18:30)
--- NOTE | 2022-01-17 18:34 | History & Physical-Hospitalist ---
History of Present Illness HPI/Chief Complaint CC: CP HPI: This is a 57yoWM clinic patient of [facility] who presents to the ER with CP and HTN urgency. Cardiology has assessed him and their expertise is appreciated. Patient not forthcoming with any details. Source: patient Exam Limitations: no limitations Date Seen 01/17/22 Time Seen by a Provider: 18:00 Attending Physician Melany,Local Physician PCP Admitting Physician: Trixie Gastelum DO Attending Physician: Trixie Gastelum DO Referring Physician Date of Admission Jan 17, 2022 at 15:12 Home Medications & Allergies Home Medications Reviewed patient Home Medication Reconciliation performed by pharmacy medication reconciliations cook chill technician and/or nursing. Patients Allergies have been reviewed. Allergies Allergies Coded Allergies Penicillins (Verified Allergy, Unknown, 04/15/20) Past Oouamnl-Aktvvl-Jotyew Hx Patient Social History Marrital Status: single Employed/Student: unemployed Tobacco Use?: Yes Tobacco type used: Cigarettes Smoking Status: Current Everyday Smoker Use of E-Cig and/or Vaping dev: No Substance use?: No Alcohol Use?: No Pt feels they are or have been: No Immunizations Up To Date Tetanus Booster (TDap): Unknown Seasonal Allergies Seasonal Allergies: No Current Status Advance Directives: No Communicates: Verbally Primary Language: Kittitian Preferred Spoken Language: Kittitian Past Medical History Surgeries: Coronary Stent Heart Attack, Hypertension Gastroesophageal Reflux Blood Disorders: Yes (ANEMIA) Review of Systems Constitutional: see HPI Cardiovascular: chest pain Physical Exam Physical Exam Vital Signs Vital Signs - First Documented 01/17/22 11:32 Pulse 62 Resp 18 B/P (MAP) 136/96 (109) Pulse Ox 97 O2 Delivery Room Air Capillary Refill : Less Than 3 Seconds Height, Weight, BMI Height: '" Weight: lbs. oz. kg; 32.22 BMI Method: General Appearance: No Apparent Distress Eyes: Right Eye Normal Inspection, Right Eye PERRL HEENT: PERRL/EOMI, Normal ENT Inspection, Pharynx Normal, Moist Mucous Membranes Neck: Full Range of Motion, Normal Inspection, Non Tender Respiratory: Chest Non Tender, Lungs Clear, Normal Breath Sounds, No Accessory Muscle Use, No Respiratory Distress Cardiovascular: Regular Rate, Rhythm, No Edema, No Gallop, No JVD, No Murmur, Normal Peripheral Pulses Gastrointestinal: Normal Bowel Sounds, No Organomegaly, No Pulsatile Mass, Non Tender, Soft Back: Normal Inspection, No CVA Tenderness, No Vertebral Tenderness Extremity: Normal Capillary Refill, Normal Inspection, Normal Range of Motion, Non Tender, No Calf Tenderness, No Pedal Edema Neurologic/Psychiatric: Alert, Oriented x3, No Motor/Sensory Deficits, Normal Mood/Affect Skin: Normal Color, Warm/Dry Lymphatic: No Adenopathy Results Results/Procedures Labs Laboratory Tests 01/17/22 11:45 01/18/22 04:55 Patient resulted labs reviewed. Assessment/Plan Admission Diagnosis Assessment: NSTEMI HTN urgency Smoker Plan: Cardiology Monitor closely Admission Status: Inpatient Order (span 2 midnights) Reason for Inpatient Admission: nstemi Clinical Quality Measures AMI/AHF: ASA po Prior to arrival: TRIXIE Lopez DO Jan 17, 2022 18:34
[2022-01-17] MEDS: SENNOSIDES 8.6 MG (SENOKOT) TAB PO SCH (21:00)
[2022-01-17] MEDS: DOCUSATE SODIUM 100 MG (COLACE) CAP PO SCH (21:00)
[2022-01-17] MEDS: NITROGLYCERIN 0.4 MG SL TABS BTL 25'S SL PRN ×2 (22:59→23:12)
[2022-01-18] VITALS (24 sets, daily range): BP systolic 92–124; BP diastolic 36–77
[2022-01-18] MEDS ORDERED: ENOXAPARIN 80 MG/0.8 ML (LOVENOX) SYR SC SCH (04:00)
[2022-01-18] MEDS: NITROGLYCERIN 0.4 MG SL TABS BTL 25'S SL PRN (04:19)
[2022-01-18 05:07] LABS: BASOPHILS # (AUTO) 0.1 10^3/uL (0.0-0.1); BASOPHILS % (AUTO) 0 % (0-10); EOSINOPHILS # (AUTO) 0.2 10^3/uL (0.0-0.3); EOSINOPHILS % (AUTO) 1 % (0-10); HEMATOCRIT 36 % (40-54); HEMOGLOBIN 12.1 g/dL (13.3-17.7); LYMPHOCYTES # (AUTO) 2.4 10^3/uL (1.0-4.0); LYMPHOCYTES % (AUTO) 17 % (12-44); MEAN CORPUSCULAR HEMOGLOBIN 29 pg (25-34); MEAN CORPUSCULAR HGB CONC 33 g/dL (32-36); MEAN CORPUSCULAR VOLUME 88 fL (80-99); MEAN PLATELET VOLUME 11.3 fL (9.0-12.2); MONOCYTES # (AUTO) 1.7 10^3/uL (0.0-1.0); MONOCYTES % (AUTO) 12 % (0-12); NEUTROPHILS # (AUTO) 9.9 10^3/uL (1.8-7.8); NEUTROPHILS % (AUTO) 70 % (42-75); PLATELET COUNT 196 10^3/uL (130-400); WHITE BLOOD COUNT 14.3 10^3/uL (4.3-11.0)
[2022-01-18 05:16] LABS: ALBUMIN 3.8 GM/DL (3.2-4.5); POTASSIUM 4.3 MMOL/L (3.6-5.0)
[2022-01-18 05:17] LABS: CALCIUM 8.4 MG/DL (8.5-10.1)
[2022-01-18 05:18] LABS: PROTHROMBIN TIME PATIENT 13.5 SEC (12.2-14.7)
[2022-01-18 05:19] LABS: TOTAL PROTEIN 6.8 GM/DL (6.4-8.2)
[2022-01-18 05:20] LABS: BILIRUBIN,TOTAL 0.4 MG/DL (0.1-1.0)
[2022-01-18 05:22] LABS: CREATININE SERUM 0.86 MG/DL (0.60-1.30)
[2022-01-18] MEDS ORDERED: HEParin (CATH LAB) 2,000 ML IV ONE (06:44)
[2022-01-18] MEDS ORDERED: LIDOCAINE 1% INJ 20 ML VIAL ONE (06:44)
[2022-01-18] MEDS: CLOPIDOGREL 75 MG (PLAVIX) TABLET PO SCH (08:18)
[2022-01-18] MEDS: ASPIRIN E.C. 81 MG (ECOTRIN) TAB PO SCH (08:18)
[2022-01-18] MEDS: DOCUSATE SODIUM 100 MG (COLACE) CAP PO SCH ×2 (08:20→20:11)
[2022-01-18] MEDS: SENNOSIDES 8.6 MG (SENOKOT) TAB PO SCH ×2 (08:20→20:11)
[2022-01-18] MEDS ORDERED: fentaNYL INJ 100 MCG/2 ML AMP ONE (08:23)
[2022-01-18] MEDS ORDERED: MIDAZOLAM 2 MG/2 ML (VERSED) VIAL ONE (08:23)
[2022-01-18] MEDS ORDERED: NITRO DRIP 25000 MCG/D5W 250 ML IV ONE (08:35)
[2022-01-18] MEDS ORDERED: HEParin 1000 UNIT/ML (10ML VIAL) FOR BOLUS ONE (08:35)
[2022-01-18] MEDS ORDERED: EPTIFIBATIDE BOLUS 20 ML IV ONE (08:36)
[2022-01-18] MEDS ORDERED: NS IV 1000 ML 1,000 ML ONE (08:47)
[2022-01-18] MEDS ORDERED: ASPIRIN 81 MG CHEW (CHILDREN'S ASA) PO SCH (09:00)
[2022-01-18] MEDS ORDERED: CLOPIDOGREL 75 MG (PLAVIX) TABLET PO SCH (09:00)
[2022-01-18] MEDS ORDERED: EPTIFIBATIDE DRIP 100 ML IV ONE (09:20)
[2022-01-18] MEDS ORDERED: CLOPIDOGREL 300 MG (PLAVIX) TABLET PO ONE (10:12)
[2022-01-18] MEDS ORDERED: ASPIRIN 81 MG CHEW (CHILDREN'S ASA) ONE ×2 (10:12→10:24)
--- NOTE | 2022-01-18 10:22 | Progress Note - Hospitalist ---
VIOLETTE BYERS 01/18/22 1022: Subjective HPI/CC On Admission Date Seen by Provider: Jan 18, 2022 Time Seen by Provider: 10:04 CC: CP HPI: This is a 57yoWM clinic patient of [facility] who presents to the ER with CP and HTN urgency. Cardiology has assessed him and their expertise is appreciated. Patient not forthcoming with any details. Subjective/Events-last exam Patient still has mild epigastric pain Still complaining of left forearm pain Had echo performed this morning He was taken for cardiac cath this morning Had no other complaints at this time Labs Reviewed Patient was cooperative Objective Exam Vital Signs Vital Signs Date Time Temp Pulse Resp B/P (MAP) Pulse Ox O2 Delivery O2 Flow Rate FiO2 01/18/22 07:53 36.6 52 14 124/77 (93) 96 01/18/22 04:17 Room Air Capillary Refill : Less Than 3 Seconds General Appearance: No Apparent Distress, WD/WN HEENT: PERRL/EOMI; No Scleral Icterus (L), No Scleral Icterus (R) Neck: Full Range of Motion, Normal Inspection Respiratory: Chest Non Tender, Lungs Clear Cardiovascular: No Edema, No Gallop, Bradycardia Gastrointestinal: Normal Bowel Sounds, Non Tender, Soft Rectal: Deferred Back: Normal Inspection, No CVA Tenderness, CVA Tenderness (L), CVA Tenderness (R) Extremity: Normal Capillary Refill, Normal Inspection Neurologic/Psychiatric: Alert, Normal Mood/Affect Skin: Normal Color, Warm/Dry Lymphatic: No Adenopathy Results/Procedures Lab Laboratory Tests 01/17/22 11:45 01/18/22 04:55 Patient resulted labs reviewed. Assessment/Plan Assessment and Plan Assess & Plan/Chief Complaint Inferior wall NSTEMI Cardiology consulted-Placed patient on duel antiplatelet therapy (Plavix and Lovenox). 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) Continue antiplatelet therapy GERD Administer Pantoprazole HTN Continue home medications History of prior AK, and prior cardiac stent placement Tobacco Abuse Support Cessation Hyperlipidemia/CAD Continue with home atovastatin Clinical Quality Measures AMI/AHF: ASA po Prior to arrival: No TRIXIE LAMA DO 01/19/22 0544: Subjective Subjective/Events-last exam Pt is doing about the same Received stent for 100% occluded artery Troponin maximum was 21 Echocardiogram was done today Thrombosis will require anticoagulation for 6 months since unprovoked Supervisory-Addendum Brief Verification & Attestation Participated in pt care: history, MDM, physical Personally performed: exam, history, MDM, supervision of care Care discussed with: Medical Student Procedures: n/a Results interpretation: Verified all documentation Verification and Attestation of Medical Student E/M Service A medical student performed and documented this service in my presence. I reviewed and verified all information documented by the medical student and made modifications to such information, when appropriate. I personally performed the physical exam and medical decision making. Trixie Lama Jan 19, 2022,05:43 VIOLETTE BYERS Jan 18, 2022 10:22 TRIXIE LAMA DO Jan 19, 2022 05:44
--- NOTE | 2022-01-18 10:32 | Progress Note - Cardiology ---
Cardiology SOAP Progress Note Subjective: Had cp overnight (relieved s/l NTG0 No palp or syncope No shortness of breath at rest Gen weakness No focal weakness No n/v/d Objective: I&O/Vital Signs 01/17/22 01/18/22 01/18/22 01/18/22 23:00 00:00 00:00 01:00 Pulse 53 49 52 Resp 19 14 B/P (MAP) 121/68 (90) 113/67 (84) Pulse Ox 94 94 97 O2 Delivery Room Air Room Air Room Air 01/18/22 01/18/22 01/18/22 01/18/22 04:00 04:17 07:00 07:53 Temp 36.6 Pulse 51 57 52 Resp 20 14 B/P (MAP) 113/70 (101) 124/77 (93) Pulse Ox 97 96 96 O2 Delivery Room Air Room Air 01/17/22 23:59 Intake Total 475 ml Balance 475 ml Constitutional: AAO x 3, well-developed, well-nourished Respiratory: No accessory muscle use, No respiratory distress; chest expansion is symmetric, chest is bilaterally symmetric, other (prolonged exp phase) Cardiovascular: regular rate-rhythm; No JVD; S1 and S2 Gastrointestional: No tender; soft, round, audible bowel sounds Extremities: no lower extremity edema bilateral Neurologic/Psychiatric: grossly intact (moves all extremities) Skin: No rash on exposed areas, No ulcerations on exposed areas Results/Procedures: Labs Laboratory Tests 01/17/22 11:45: White Blood Count 13.0H, Red Blood Count 4.61, Hemoglobin 13.6, Hematocrit 41, Mean Corpuscular Volume 88, Mean Corpuscular Hemoglobin 30, Mean Corpuscular Hemoglobin Concent 34, Red Cell Distribution Width 14.5, Platelet Count 223, Mean Platelet Volume 11.3, Immature Granulocyte % (Auto) 0, Neutrophils (%) (Auto) 75, Lymphocytes (%) (Auto) 15, Monocytes (%) (Auto) 8, Eosinophils (%) (Auto) 1, Basophils (%) (Auto) 1, Neutrophils # (Auto) 9.8H, Lymphocytes # (Auto) 1.9, Monocytes # (Auto) 1.0, Eosinophils # (Auto) 0.2, Basophils # (Auto) 0.1, Immature Granulocyte # (Auto) 0.1, Prothrombin Time 12.1L, INR Comment 0.9, Activated Partial Thromboplast Time 30, Sodium Level 140, Potassium Level 4.0, Chloride Level 105, Carbon Dioxide Level 21, Anion Gap 14, Blood Urea Nitrogen 15, Creatinine 0.96, Estimat Glomerular Filtration Rate 91, BUN/Creatinine Ratio 16, Glucose Level 156H, Calcium Level 9.1, Corrected Calcium 8.9, Magnesium Level 2.0, Total Bilirubin 0.4, Aspartate Amino Transf (AST/SGOT) 31, Alanine Aminotransferase (ALT/SGPT) 38, Alkaline Phosphatase 94, Myoglobin 149.6H, Troponin I < 0.028, B-Type Natriuretic Peptide 18.6, Total Protein 7.8, Albumin 4.2, Lipase 205H 01/17/22 13:36: Troponin I 0.071H 01/17/22 18:39: Troponin I 1.898*H 01/17/22 23:55: Troponin I 10.879*H 01/18/22 04:55: White Blood Count 14.3H, Red Blood Count 4.12L, Hemoglobin 12.1L, Hematocrit 36L , Mean Corpuscular Volume 88, Mean Corpuscular Hemoglobin 29, Mean Corpuscular Hemoglobin Concent 33, Red Cell Distribution Width 14.7H, Platelet Count 196, Mean Platelet Volume 11.3, Immature Granulocyte % (Auto) 0, Neutrophils (%) (Auto) 70, Lymphocytes (%) (Auto) 17, Monocytes (%) (Auto) 12, Eosinophils (%) (Auto) 1, Basophils (%) (Auto) 0, Neutrophils # (Auto) 9.9H, Lymphocytes # (Auto) 2.4, Monocytes # (Auto) 1.7H, Eosinophils # (Auto) 0.2, Basophils # (Auto) 0.1, Immature Granulocyte # (Auto) 0.0, Prothrombin Time 13.5, INR Comment 1.0, Activated Partial Thromboplast Time 37H, Sodium Level 138, Potassium Level 4.3, Chloride Level 106, Carbon Dioxide Level 19L, Anion Gap 13, Blood Urea Nitrogen 15, Creatinine 0.86, Estimat Glomerular Filtration Rate 100, BUN/Creatinine Ratio 17, Glucose Level 120H, Calcium Level 8.4L, Corrected Calcium 8.6, Total Bilirubin 0.4, Aspartate Amino Transf (AST/SGOT) 139H, Alanine Aminotransferase (ALT/SGPT) 45, Alkaline Phosphatase 81, Troponin I 2 1.259*H, Total Protein 6.8, Albumin 3.8 Laboratory Tests 01/17/22 11:45 01/18/22 04:55 A/P: Assessment: NSTEMI - treated with cor intervention (see below) CAD - reports stents x 3 in [place], [place] in 2007; stent x 1 in [place] in 2012 (details unknown) - last cath 01/18/22: LMCA ok, LAD 40-50% mid, LCx with patent prox stent but with 80% stenoses prox and distal to the stent with distal vessel relatively small in caliber, RCA dominant and exhibiting complete occlusion in a long st ented segment in the mid to distal vessel, LVEF 35-40%, inf hypo to akinesis, LVEDP 20 mmHg - cor intervention on 01/18/22: successful balloon angioplasty of complete occlusion of a long stented segment in the RCA followed by overlapping (Skypoint 2.75 x 18) of the segment prox to the stented segment ISCHEMIC CARDIOMYOPATHY - see cath report above HLD Tobaccoism - cessation advised Plan: * Treat with DAPT and BB * Add Entresto and Jardiance * Diuretic, if needed * Monitor labs Clinical Quality Measures AMI/AHF: ASA po Prior to arrival: AMBER Chavez MD FACP FAC CCDS Jan 18, 2022 10:32
[2022-01-18] MEDS ORDERED: PATIENT MAY USE OWN MEDS, ALL PO SCH (10:45)
--- NOTE | 2022-01-18 11:38 | Cardiac Procedure Note-CS/ASA ---
Pre-Procedure Note Pre-Op Procedure Note Date of Available H&P: Jan 17, 2022 Date H&P Reviewed: Jan 18, 2022 Time H&P Reviewed: 08:30 History & Physical: No changes noted Conscious Sedation Pre-Proced Time 08:30 ASA Score 3 For ASA 3 and 4: Consider anesthesia and medical clearance. Also, for patients with a history of failed moderate sedation consider anesthesia. Airway Lungs Heart ASA score ASA 1: a normal healthy patient ASA 2: a patient with a mild systemic disease (mid diabetes, controlled hypertension, obesity ASA 3: a patient with a severe systemic disease that limits activity (angina, COPD, prior Myocardial infarction) ASA 4: a patient with an incapacitating disease that is a constant threat to life (CHF, renal failure) ASA 5: a moribund patient not expected to survive 24 hrs. (ruptured aneurysm) ASA 6: a declared brain- patient whose organs are being harvested. For emergent operations, add the letter E after the classification Mallampati Classification Grade 2 Sedation Plan Analgesia, Amnesia, Plan communicated to team members The patient is an appropriate candidate to undergo the planned procedure, sedation, and anesthesia. The patient immediately re-assessed prior to indication. AMBER LI MD FACP FAC CCDS Jan 18, 2022 11:38
--- NOTE | 2022-01-18 12:11 | CARDIAC CATHETERIZATION ---
DATE OF SERVICE: 01/18/2022 CARDIAC CATHETERIZATION AND CORONARY INTERVENTION REPORT INDICATION FOR PROCEDURE: The patient is a 57-year-old gentleman, who is known to have coronary artery disease and reports a history of stenting of the coronary arteries in [place], [place], the last one being in 2012. He is not aware of any details of that. He presented to this hospital with acute non-ST elevation myocardial infarction. This was followed by unstable angina. Urgent cardiac catheterization was recommended. Informed consent was obtained. DESCRIPTION OF PROCEDURE: He was brought to the cardiac catheterization laboratory in a fasting state. Right groin was prepared and draped in the usual sterile fashion. Lidocaine 1% was used for local anesthesia. Modified Seldinger technique was used to advance a 6-Maltese sheath into the right femoral artery. We used a 6-Maltese JL4 catheter for left coronary angiography and a 6-Maltese JR4 catheter was used for right coronary angiography. We used a pigtail catheter for left heart catheterization and left ventricular coronary angiography. Subsequently, percutaneous intervention was carried out to the right coronary artery and is described below. PERCUTANEOUS INTERVENTION TO THE RIGHT CORONARY: We engaged the right coronary artery with a 6-Maltese JR4 guide catheter and we were able to advance a ChoICE floppy wire to cross the complete occlusion in the mid to distal right coronary artery within a long stented segment. However, we were not able to advance any balloon into the lesion. Accordingly, we removed the wire and the guide catheter. We removed the guide catheter because there appeared to be some thrombus in the guide catheter and we did not want to inject anything through it. We used a new JR4 guide catheter to engage the right coronary artery. At this time, we chose a ChoICE extra support wire. We were able to advance it across the complete occlusion with moderate difficulty and the tip of the wire was placed in the distal posterolateral branch. We were then able to advance a 1.5 x 15 mm balloon and multiple balloon angioplasty maneuvers were carried out within the occluded segment of the right coronary artery. This restored antegrade flow and we were able to visualize the entire right coronary artery. We removed this balloon and then carried out successful balloon angioplasty of the standard/occluded segment with 2.0 x 30 mm and then 2.5 x 30 mm balloon. This restored normal antegrade flow. We then stented the portion of the right coronary artery just proximal to the proximal edge of the previous stent and the new stent was made to slightly overlap the previous stent. This stent is Skypoint 2.75 x 18 mm. It was deployed at 16 atmospheres. Subsequently, we took the same balloon and we used it to carry out balloon angioplasty of the entire standard segment (the old stented segment and the new stented segment). Subsequent angiography revealed 0% residual stenosis at the previous site of complete occlusion. Flow improved from DOT 0 in the distal right coronary to DOT 3. The patient tolerated the procedure well. Angioplasty equipment was removed. Sheath was sutured in place for manual sheath removal on the floors. HEMODYNAMICS: Left ventricular end-diastolic pressure following coronary angiography was 20 mmHg. There was no significant pressure gradient on pullback across the aortic valve. Ascending aortic pressure was 128/67 with a mean of 64 mmHg. CORONARY ANGIOGRAPHY: Left main coronary artery is free of significant disease. Left anterior descending artery has 40% to 50% mid vessel stenosis. Right coronary artery has a patent stent in its proximal portion, but there is 70% to 80% stenosis of the ostial and proximal left circumflex and another 80% stenosis of the circumflex just distal to the standard segment. There is distal stenosis involving the bifurcation. The distal left circumflex artery is of relatively small caliber. The right coronary artery is large and dominant. It was completely occluded in its mid portion at the beginning of an old stented segment. To this, successful percutaneous intervention was carried out that is described above. Following balloon angioplasty and deployment of another proximal stent that slightly overlaps the proximal segment of the previously stented segment, there is no significant residual stenosis of the flow and the distal right coronary artery is normal. The stent deployed today is Skypoint 2.75 x 18 mm. LEFT VENTRICULAR ANGIOGRAPHY: Left ventricular angiography was carried out in the right anterior oblique projection. There is inferior wall hypokinesis to akinesis. Left ventricular ejection fraction is estimated to be 35% to 40%. CONCLUSIONS: 1. Coronary artery disease primarily consisting of complete occlusion of the mid to distal right coronary artery (mostly within a previously stented segment) that was successfully treated with balloon angioplasty and additional proximal stenting with Skypoint 2.5 x 18 mm stent. The right coronary artery is dominant. The left circumflex artery is small and nondominant. It has a patent stent in its proximal portion, but there is significant disease in its proximal and distal to the stented segment. The distal disease extends into a relatively small caliber bifurcation. The left anterior descending artery shows 40% to 50% mid vessel stenosis. The left main coronary artery does not exhibit significant disease. 2. Impairment of global left ventricular systolic function with inferior wall hypokinesis to akinesis and left ventricular ejection fraction of 35% to 40%. 3. Elevated left ventricular end-diastolic pressure. DISCUSSION AND RECOMMENDATIONS: Therapy with dual antiplatelet agents is being continued. Beta blockers and Entresto will be used for ischemic cardiomyopathy. We are also adding Jardiance to the regimen. Diuretics will be used if needed. He has been advised to quit smoking immediately and completely. Statin therapy is also being initiated. Further recommendations will be based on his hospital course. Job ID: [id number] DocumentID: [id number] Dictated Date: 01/18/2022 11:01:35 [employer] Cook Date: 01/18/2022 12:10:12 Dictated By: AMBER LI MD, MA, FACP, FACC, MTDD
[2022-01-18] MEDS: NS IV 1000 ML 1,000 ML IV SCH ×4 (14:01→21:30)
[2022-01-18] MEDS ORDERED: MULT-1136 PO (14:17)
[2022-01-18] MEDS ORDERED: ACET-2267 PO (14:17)
[2022-01-18] MEDS ORDERED: FERR-84 PO (14:17)
[2022-01-18] MEDS ORDERED: DOCU-26 PO (14:17)
[2022-01-18] MEDS ORDERED: ASPI-1238 PO (14:17)
[2022-01-18] MEDS ORDERED: ATOR40TA70 PO (14:17)
[2022-01-18] MEDS: PANTOPRAZOLE 40 MG (PROTONIX) TAB PO SCH (15:15)
[2022-01-18] MEDS: SACUBITRIL/VALSARTAN 24/26 MG (ENTRESTO) TABLET PO SCH (20:08)
[2022-01-18 22:20] LABS: CHOLESTEROL 125 MG/DL (< 200); HDL CHOLESTEROL 33 MG/DL (40-60); TRIGLYCERIDES 141 MG/DL (<150); VLDL CHOLESTEROL 28 MG/DL (5-40)
[2022-01-19] VITALS (9 sets, daily range): BP systolic 89–129; BP diastolic 48–65
[2022-01-19] MEDS: NS IV 1000 ML 1,000 ML IV SCH ×3 (00:44→19:15)
[2022-01-19 05:42] LABS: BASOPHILS # (AUTO) 0.1 10^3/uL (0.0-0.1); BASOPHILS % (AUTO) 1 % (0-10); EOSINOPHILS # (AUTO) 0.2 10^3/uL (0.0-0.3); EOSINOPHILS % (AUTO) 1 % (0-10); HEMATOCRIT 32 % (40-54); HEMOGLOBIN 10.7 g/dL (13.3-17.7); LYMPHOCYTES # (AUTO) 2.6 10^3/uL (1.0-4.0); LYMPHOCYTES % (AUTO) 24 % (12-44); MEAN CORPUSCULAR HEMOGLOBIN 30 pg (25-34); MEAN CORPUSCULAR HGB CONC 33 g/dL (32-36); MEAN CORPUSCULAR VOLUME 89 fL (80-99); MEAN PLATELET VOLUME 11.7 fL (9.0-12.2); MONOCYTES # (AUTO) 1.8 10^3/uL (0.0-1.0); MONOCYTES % (AUTO) 17 % (0-12); NEUTROPHILS # (AUTO) 6.3 10^3/uL (1.8-7.8); NEUTROPHILS % (AUTO) 58 % (42-75); PLATELET COUNT 158 10^3/uL (130-400)
[2022-01-19 05:55] LABS: ALBUMIN 3.2 GM/DL (3.2-4.5)
[2022-01-19 05:57] LABS: TOTAL PROTEIN 5.9 GM/DL (6.4-8.2)
[2022-01-19 05:59] LABS: BILIRUBIN,TOTAL 0.6 MG/DL (0.1-1.0)
[2022-01-19 06:01] LABS: CREATININE SERUM 0.78 MG/DL (0.60-1.30)
[2022-01-19] MEDS: PANTOPRAZOLE 40 MG (PROTONIX) TAB PO SCH (08:38)
[2022-01-19] MEDS: CLOPIDOGREL 75 MG (PLAVIX) TABLET PO SCH (08:38)
[2022-01-19] MEDS: ENOXAPARIN 40 MG/0.4 ML (LOVENOX) SYR SC SCH (08:38)
[2022-01-19] MEDS: EMPAGLIFLOZIN 10 MG TABLET (JARDIANCE) PO SCH (08:39)
[2022-01-19] MEDS: SACUBITRIL/VALSARTAN 24/26 MG (ENTRESTO) TABLET PO SCH ×2 (08:39→21:02)
[2022-01-19] MEDS: ASPIRIN E.C. 81 MG (ECOTRIN) TAB PO SCH (08:39)
[2022-01-19] MEDS: DOCUSATE SODIUM 100 MG (COLACE) CAP PO SCH ×2 (08:40→21:02)
[2022-01-19] MEDS: SENNOSIDES 8.6 MG (SENOKOT) TAB PO SCH ×2 (08:40→21:02)
[2022-01-19] MEDS ORDERED: CLOP75TA28 PO ×2 (09:06→09:29)
[2022-01-19] MEDS ORDERED: PANT40TA52 PO ×2 (09:06→09:29)
[2022-01-19] MEDS ORDERED: SACU1TAB2 PO ×2 (09:06→09:29)
[2022-01-19] MEDS ORDERED: EMPA10TA PO ×2 (09:06→09:29)
[2022-01-19] MEDS ORDERED: MTP25TSR PO ×2 (09:06→09:29)
[2022-01-19] MEDS ORDERED: NITR0.4T42 SL ×2 (09:06→09:29)
--- NOTE | 2022-01-19 09:08 | Discharge Summary ---
Discharge Summary Hospital Course Was the Problem List Reviewed?: Yes Hospital Course Date of Admission: Jan 18, 2022 at 12:55 Admission Diagnosis : Family Physician/Provider: No,Local Physician Date of Discharge: 01/19/22 Discharge Diagnosis: [ ] Hospital Course: [ ] Labs and Pending Lab Test: Laboratory Tests 01/18/22 13:45: Troponin I 88.232*H, Lipase 81H 01/19/22 05:09: White Blood Count 11.0, Red Blood Count 3.63L, Hemoglobin 10.7L, Hematocrit 32L, Mean Corpuscular Volume 89, Mean Corpuscular Hemoglobin 30, Mean Corpuscular Hemoglobin Concent 33, Red Cell Distribution Width 14.6H, Platelet Count 158, Mean Platelet Volume 11.7, Immature Granulocyte % (Auto) 0, Neutrophils (%) (Auto) 58, Lymphocytes (%) (Auto) 24, Monocytes (%) (Auto) 17H, Eosinophils (%) (Auto) 1, Basophils (%) (Auto) 1, Neutrophils # (Auto) 6.3, Lymphocytes # (Auto) 2.6, Monocytes # (Auto) 1.8H, Eosinophils # (Auto) 0.2, Basophils # (Auto) 0.1, Immature Granulocyte # (Auto) 0.0, Sodium Level 139, Potassium Level 4.0, Chloride Level 109H, Carbon Dioxide Level 18L, Anion Gap 12, Blood Urea Nitrogen 12, Creatinine 0.78, Estimat Glomerular Filtration Rate 103, BUN/Creatinine Ratio 15, Glucose Level 94, Calcium Level 8.0L, Corrected Calcium 8.6, Total Bilirubin 0.6, Aspartate Amino Transf (AST/SGOT) 141H, Alanine Aminotransferase (ALT/SGPT) 49, Alkaline Phosphatase 86, Total Protein 5.9L, Albumin 3.2 Home Meds Active Reported Iron (Ferrous Sulfate) 325 Mg (65 Mg Iron) Tablet 325 Mg PO MO,WE,FR Stool Softener (Docusate Sodium) 100 Mg Capsule 100 Mg PO HS PRN Aspirin EC (Aspirin) 81 Mg Tablet.dr 81 Mg PO DAILY Tylenol Extra Strength (Acetaminophen) 500 Mg Tablet 500 Mg PO HS Multivitamin 1 Each Tablet 1 Each PO DAILY Atorvastatin Calcium 40 Mg Tablet 40 Mg PO HS Discharge Physical Examination Vital Signs Vital Signs Date Time Temp Pulse Resp B/P (MAP) Pulse Ox O2 Delivery O2 Flow Rate FiO2 01/19/22 08:00 36.5 56 16 106/55 (72) 97 Room Air 01/18/22 12:00 2.00 Allergies: Coded Allergies: Penicillins (Verified Allergy, Unknown, 04/15/20) Discharge Summary Date of Admission Jan 18, 2022 at 12:55 Date of Discharge Discharge Date: Jan 19, 2022 Admission Diagnosis Assessment: NSTEMI HTN urgency Smoker Plan: Cardiology Monitor closely Clinical Quality Measures AMI/AHF: ASA po Prior to arrival: NISREEN Lopez DO Jan 19, 2022 09:08
--- NOTE | 2022-01-19 09:46 | Progress Note - Cardiology ---
Cardiology SOAP Progress Note Subjective: Feels well No cp or palp or syncope or shortness of breath No n/v/d No focal weakness No groin or leg discomfort Objective: I&O/Vital Signs 01/18/22 01/18/22 01/18/22 01/19/22 22:00 23:00 23:45 00:00 Pulse 79 57 70 B/P (MAP) 92/36 (54) 102/56 (71) 101/65 (77) Pulse Ox 99 96 95 O2 Delivery Room Air Room Air Room Air Room Air 01/19/22 01/19/22 01/19/22 01/19/22 01:00 01:00 02:42 03:42 Pulse 51 53 52 51 B/P (MAP) 102/55 (71) 89/53 (65) 106/55 (72) Pulse Ox 98 98 98 O2 Delivery Room Air Room Air Room Air 01/19/22 01/19/22 01/19/22 01/19/22 04:08 07:00 08:00 08:00 Temp 36.5 Pulse 77 56 Resp 16 B/P (MAP) 106/55 (72) Pulse Ox 99 97 O2 Delivery Room Air Room Air Room Air 01/19/22 00:00 Intake Total 380 ml Output Total 0 ml Balance 380 ml Constitutional: AAO x 3, well-developed, well-nourished Respiratory: No accessory muscle use, No respiratory distress; chest expansion is symmetric, chest is bilaterally symmetric, other (prolonged exp phase) Cardiovascular: regular rate-rhythm; No JVD; S1 and S2 Gastrointestional: No tender; soft, round, audible bowel sounds Extremities: no lower extremity edema bilateral Neurologic/Psychiatric: grossly intact (moves all extremities) Skin: No rash on exposed areas, No ulcerations on exposed areas Results/Procedures: Labs Laboratory Tests 01/18/22 13:45: Troponin I 88.232*H, Lipase 81H 01/19/22 05:09: White Blood Count 11.0, Red Blood Count 3.63L, Hemoglobin 10.7L, Hematocrit 32L, Mean Corpuscular Volume 89, Mean Corpuscular Hemoglobin 30, Mean Corpuscular Hemoglobin Concent 33, Red Cell Distribution Width 14.6H, Platelet Count 158, Mean Platelet Volume 11.7, Immature Granulocyte % (Auto) 0, Neutrophils (%) (Auto) 58, Lymphocytes (%) (Auto) 24, Monocytes (%) (Auto) 17H, Eosinophils (%) (Auto) 1, Basophils (%) (Auto) 1, Neutrophils # (Auto) 6.3, Lymphocytes # (Auto) 2.6, Monocytes # (Auto) 1.8H, Eosinophils # (Auto) 0.2, Basophils # (Auto) 0.1, Immature Granulocyte # (Auto) 0.0, Sodium Level 139, Potassium Level 4.0, Chloride Level 109H, Carbon Dioxide Level 18L, Anion Gap 12, Blood Urea Nitrogen 12, Creatinine 0.78, Estimat Glomerular Filtration Rate 103, BUN/Creatinine Ratio 15, Glucose Level 94, Calcium Level 8.0L, Corrected Calcium 8.6, Total Bilirubin 0.6, Aspartate Amino Transf (AST/SGOT) 141H, Alanine Aminotransferase (ALT/SGPT) 49, Alkaline Phosphatase 86, Total Protein 5.9L, Albumin 3.2 A/P: Assessment: NSTEMI - treated with cor intervention (see below) CAD - reports stents x 3 in [place], [place] in 2007; stent x 1 in [place] in 2012 (details unknown) - last cath 01/18/22: LMCA ok, LAD 40-50% mid, LCx with patent prox stent but with 80% stenoses prox and distal to the stent with distal vessel relatively small in caliber, RCA dominant and exhibiting complete occlusion in a long stented segment in the mid to distal vessel, LVEF 35-40%, inf hypo to akinesis, LVEDP 20 mmHg - cor intervention on 01/18/22: successful balloon angioplasty of complete occlusion of a long stented segment in the RCA followed by overlapping (Skypoint 2.75 x 18) of the segment prox to the stented segment ISCHEMIC CARDIOMYOPATHY - see cath report above - echo on 01/18/22: LVEF 45-50%, mild inf hypokinesis, PASP 35-40 mmHg HLD Tobaccoism - cessation advised Plan: * Treat with DAPT and BB * Continue Entresto and Jardiance * Diuretic, if needed * Increase ambulation * Monitor labs Clinical Quality Measures AMI/AHF: ASA po Prior to arrival: AMBER Chavez MD [facility] Jan 19, 2022 09:46
--- NOTE | 2022-01-19 09:59 | Progress Note - Hospitalist ---
VIOLETTE BYERS 01/19/22 0959: Subjective HPI/CC On Admission Date Seen by Provider: Jan 19, 2022 Time Seen by Provider: 09:54 CC: CP HPI: This is a 57yoWM clinic patient of [facility] who presents to the ER with CP and HTN urgency. Cardiology has assessed him and their expertise is appreciated. Patient not forthcoming with any details. Subjective/Events-last exam Patient is a 57 year old male with a past medical history of CAD, HTN, prior [place] & stenting, and current smoker was brought into the ER with epigastric burning sensation and pain in the volar aspect of the left forearm on 01-17-2022. 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 Loving in [place]. He follows with [facility]. The current medication he takes is atorvastatin, aspirin 81 mg, and multivitamin. He was given nitroglycerin in the ER which helped alleviate some pain. He was also found to have a elevated troponin of 10 in the ER, along with a elevated lipase of 205. His EKG showed NSR with inferior Q waves. Patient was then taken to have chest x-ray and CT ABD/pelvis done, both preformed on 01-17-2022. The chest x-ray showed no acute cardiopulmonary process. The CT ABD/pelvis showed a thrombus in left common and external iliac artery. He was subsequently admitted later that day (01-17-2022). He was started on plavix and lovenox. Per cardiology he was taken to have an echocardiogram and heart cath performed on 01-18-2022. Echocardiogram showed LVEF of 45-50% and mild LV hypokinesis. Heart cath resulted in angioplasty of RCA and 1 stent placed in prior occluded stent in RCA. After he was placed on entresto and jardiance by cardiology. Both troponin and lipase were monitored throughout stay. Encounter 01-19-2022 Patient has no chest pain No discomfort noted from catheter insertion site No pain reported Ambulating without problem, bowels moving appropriately is in room, concerned with patients status Labs reviewed Denies N/V Non conversational Objective Exam Vital Signs Vital Signs Date Time Temp Pulse Resp B/P (MAP) Pulse Ox O2 Delivery O2 Flow Rate FiO2 01/19/22 08:00 36.5 56 16 106/55 (72) 97 Room Air 01/18/22 12:00 2.00 Capillary Refill : Less Than 3 Seconds General Appearance: No Apparent Distress, WD/WN, Obese HEENT: PERRL/EOMI; No Scleral Icterus (L), No Scleral Icterus (R) Neck: Full Range of Motion, Normal Inspection Respiratory: Chest Non Tender, Lungs Clear Cardiovascular: No Edema, No Gallop, Bradycardia Gastrointestinal: Non Tender, Soft Rectal: Deferred Back: Normal Inspection, No CVA Tenderness Extremity: Normal Capillary Refill, Normal Inspection, No Pedal Edema Neurologic/Psychiatric: Alert, Oriented x3, Normal Mood/Affect Skin: Normal Color, Warm/Dry Lymphatic: No Adenopathy Results/Procedures Lab Laboratory Tests 01/19/22 05:09 Patient resulted labs reviewed. Assessment/Plan Assessment and Plan Assess & Plan/Chief Complaint Inferior wall NSTEMI Cardiology consulted-Placed patient on duel antiplatelet therapy (Plavix and Lovenox). 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 (01-17-2022) Continue antiplatelet therapy GERD Administer Pantoprazole HTN Continue home medications History of prior DE, and prior cardiac stent placement Tobacco Abuse Support Cessation Hyperlipidemia/CAD Continue with home atovastatin Clinical Quality Measures AMI/AHF: ASA po Prior to arrival: TRIXIE Lopez DO 01/19/222054: Supervisory-Addendum Brief Verification & Attestation Participated in pt care: history, MDM, physical Personally performed: exam, history, MDM, supervision of care Care discussed with: Medical Student Procedures: n/a Results interpretation: Verified all documentation Verification and Attestation of Medical Student E/M Service A medical student performed and documented this service in my presence. I reviewed and verified all information documented by the medical student and made modifications to such information, when appropriate. I personally performed the physical exam and medical decision making. Trixie Lama Jan 19, 2022,20:53 VIOLETTE BYERS Jan 19, 2022 09:59 TRIXIE LAMA DO Jan 19, 2022 20:55
[2022-01-20] VITALS: BP 124/61
[2022-01-20 05:41] LABS: BASOPHILS # (AUTO) 0.1 10^3/uL (0.0-0.1); BASOPHILS % (AUTO) 1 % (0-10); EOSINOPHILS # (AUTO) 0.2 10^3/uL (0.0-0.3); EOSINOPHILS % (AUTO) 2 % (0-10); HEMATOCRIT 34 % (40-54); HEMOGLOBIN 11.3 g/dL (13.3-17.7); LYMPHOCYTES % (AUTO) 25 % (12-44); MEAN CORPUSCULAR HEMOGLOBIN 29 pg (25-34); MEAN CORPUSCULAR HGB CONC 33 g/dL (32-36); MEAN CORPUSCULAR VOLUME 87 fL (80-99); MEAN PLATELET VOLUME 12.1 fL (9.0-12.2); MONOCYTES # (AUTO) 1.9 10^3/uL (0.0-1.0); MONOCYTES % (AUTO) 16 % (0-12); NEUTROPHILS # (AUTO) 6.6 10^3/uL (1.8-7.8); NEUTROPHILS % (AUTO) 56 % (42-75); PLATELET COUNT 168 10^3/uL (130-400); WHITE BLOOD COUNT 11.8 10^3/uL (4.3-11.0)
[2022-01-20 05:52] LABS: ALBUMIN 3.4 GM/DL (3.2-4.5); POTASSIUM 3.9 MMOL/L (3.6-5.0)
[2022-01-20 05:53] LABS: CALCIUM 8.5 MG/DL (8.5-10.1)
[2022-01-20 05:54] LABS: TOTAL PROTEIN 6.5 GM/DL (6.4-8.2)
[2022-01-20 05:56] LABS: BILIRUBIN,TOTAL 0.5 MG/DL (0.1-1.0)
[2022-01-20 05:58] LABS: CREATININE SERUM 0.79 MG/DL (0.60-1.30)
[2022-01-20] MEDS: NS IV 1000 ML 1,000 ML IV SCH (06:20)
[2022-01-20 07:35] VITALS: BP 128/60
[2022-01-20] MEDS: EMPAGLIFLOZIN 10 MG TABLET (JARDIANCE) PO SCH (08:15)
[2022-01-20] MEDS: SENNOSIDES 8.6 MG (SENOKOT) TAB PO SCH (08:15)
[2022-01-20] MEDS: PANTOPRAZOLE 40 MG (PROTONIX) TAB PO SCH (08:15)
[2022-01-20] MEDS: CLOPIDOGREL 75 MG (PLAVIX) TABLET PO SCH (08:15)
[2022-01-20] MEDS: SACUBITRIL/VALSARTAN 24/26 MG (ENTRESTO) TABLET PO SCH (08:15)
[2022-01-20] MEDS: ASPIRIN E.C. 81 MG (ECOTRIN) TAB PO SCH (08:15)
[2022-01-20] MEDS: ENOXAPARIN 40 MG/0.4 ML (LOVENOX) SYR SC SCH (08:15)
[2022-01-20] MEDS: DOCUSATE SODIUM 100 MG (COLACE) CAP PO SCH (08:16)
[2022-01-20 11:08] VITALS: BP 128/60
--- NOTE | 2022-01-20 11:08 | Discharge Summary ---
Discharge Summary Hospital Course Was the Problem List Reviewed?: Yes Problems/Dx: (1) NSTEMI (non-ST elevated myocardial infarction) Status: Acute (2) Iliac artery thrombosis, left Status: Acute Hospital Course Date of Admission: Jan 18, 2022 at 12:55 Admission Diagnosis : Family Physician/Provider: No,Local Physician Date of Discharge: 01/20/22 Discharge Diagnosis: NSTEMI, iliac thrombosis Hospital Course: Patient is a 57 year old male with a past medical history of CAD, HTN, prior [place] & stenting, and current smoker was brought into the ER with epigastric burning sensation and pain in the volar aspect of the left forearm on 01-17-2022. 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 He follows with [facility]. The current medication he takes is atorvastatin, aspirin 81 mg, and multivitamin. He was given nitroglycerin in the ER which helped alleviate some pain. He was also found to have a elevated troponin of 10 in the ER, along with a elevated lipase of 205. His EKG showed NSR with inferior Q waves. Patient was then taken to have chest x-ray and CT ABD/pelvis done, both preformed on 01-17-2022. The chest x-ray showed no acute cardiopulmonary process. The CT ABD/pelvis showed a thrombus in left common and external iliac artery. He was subsequently admitted later that day (01-17-2022). He was started on plavix and lovenox. Per cardiology he was taken to have an echocardiogram and heart cath performed on 01-18-2022. Echocardiogram showed LVEF of 45-50% and mild LV hypokinesis. Heart cath resulted in angioplasty of RCA and 1 stent placed in prior occluded stent in RCA. After he was placed on entresto and jardiance by cardiology. Both troponin and lipase were monitored throughout stay. Labs and Pending Lab Test: Laboratory Tests 01/20/22 05:24: White Blood Count 11.8H, Red Blood Count 3.88L, Hemoglobin 11.3L, Hematocrit 34L , Mean Corpuscular Volume 87, Mean Corpuscular Hemoglobin 29, Mean Corpuscular Hemoglobin Concent 33, Red Cell Distribution Width 14.1, Platelet Count 168, Mean Platelet Volume 12.1, Immature Granulocyte % (Auto) 0, Neutrophils (%) (Auto) 56, Lymphocytes (%) (Auto) 25, Monocytes (%) (Auto) 16H, Eosinophils (%) (Auto) 2, Basophils (%) (Auto) 1, Neutrophils # (Auto) 6.6, Lymphocytes # (Auto) 3.0, Monocytes # (Auto) 1.9H, Eosinophils # (Auto) 0.2, Basophils # (Auto) 0.1, Immature Granulocyte # (Auto) 0.0, Sodium Level 138, Potassium Level 3.9, Chloride Level 108H, Carbon Dioxide Level 17L, Anion Gap 13, Blood Urea Nitrogen 13, Creatinine 0.79, Estimat Glomerular Filtration Rate 102, BUN/Creatinine Ratio 16, Glucose Level 85, Calcium Level 8.5, Corrected Calcium 9.0, Total Bilirubin 0.5, Aspartate Amino Transf (AST/SGOT) 74H, Alanine Aminotransferase (ALT/SGPT) 44, Alkaline Phosphatase 90, Total Protein 6.5, Albumin 3.4 Home Meds Active Jardiance (Empagliflozin) 10 Mg Tablet 10 Mg PO DAILY Pantoprazole Sodium 40 Mg Tablet.dr 40 Mg PO DAILY Entresto 24 mg-26 mg Tablet (Sacubitril/Valsartan) 24 Mg-26 Mg Tablet 1 Tab PO BID Metoprolol Succinate 25 Mg Tab.er.24h 25 Mg PO DAILY Nitroglycerin 0.4 Mg Tab.subl 0 Mg SL UD PRN Q5 min prn cp Clopidogrel (Clopidogrel Bisulfate) 75 Mg Tablet 75 Mg PO DAILY Reported Iron (Ferrous Sulfate) 325 Mg (65 Mg Iron) Tablet 325 Mg PO MO,WE,FR Stool Softener (Docusate Sodium) 100 Mg Capsule 100 Mg PO HS PRN Aspirin EC (Aspirin) 81 Mg Tablet.dr 81 Mg PO DAILY Tylenol Extra Strength (Acetaminophen) 500 Mg Tablet 500 Mg PO HS Multivitamin 1 Each Tablet 1 Each PO DAILY Atorvastatin Calcium 40 Mg Tablet 40 Mg PO HS Assessment/Pt Instructions Cardiology as scheduled Discharge Planning: <30 minutes discharge planning Discharge Instructions Discharge Diet: No Restrictions Activity as Tolerated: Yes Discharge Physical Examination Vital Signs Vital Signs Date Time Temp Pulse Resp B/P (MAP) Pulse Ox O2 Delivery O2 Flow Rate FiO2 01/20/22 08:15 Room Air 01/20/22 07:35 36.2 60 14 128/60 (82) 98 01/18/22 12:00 2.00 General Appearance: No Apparent Distress, WD/WN, Chronically ill Allergies: Coded Allergies: Penicillins (Verified Allergy, Unknown, 04/15/20) Discharge Summary Date of Admission Jan 18, 2022 at 12:55 Date of Discharge Discharge Date: Jan 19, 2022 Admission Diagnosis Assessment: NSTEMI HTN urgency Smoker Plan: Cardiology Monitor closely Clinical Quality Measures AMI/AHF: ASA po Prior to arrival: NISREEN Lopez DO Jan 20, 2022 11:08
[2022-01-20 11:33] VITALS: BP 131/71
--- NOTE | 2022-01-20 13:21 | Progress Note - Cardiology ---
Cardiology SOAP Progress Note Subjective: No cp or palp or syncope or shortness of breath No n/v/d No focal weakness No groin or leg discomfort Objective: I&O/Vital Signs 01/20/22 01/20/22 01/20/22 01/20/22 04:00 04:00 07:00 07:35 Temp 36.8 36.2 Pulse 58 60 Resp 14 B/P (MAP) 128/60 (82) Pulse Ox 98 O2 Delivery Room Air Room Air 01/20/22 01/20/22 01/20/22 08:15 11:08 11:33 Temp 36.2 36.9 Pulse 60 59 Resp 14 16 B/P (MAP) 128/60 131/71 (91) Pulse Ox 98 97 O2 Delivery Room Air Room Air Room Air O2 Flow Rate 0.00 01/20/22 00:00 Intake Total 600 ml Balance 600 ml Condition: DP/PT pulses palpable Bruising: mild bruising Constitutional: AAO x 3, well-developed, well-nourished Respiratory: No accessory muscle use, No respiratory distress; chest expansion is symmetric, chest is bilaterally symmetric, other (prolonged exp phase) Cardiovascular: regular rate-rhythm; No JVD; S1 and S2 Gastrointestional: No tender; soft, round, audible bowel sounds Extremities: no lower extremity edema bilateral Neurologic/Psychiatric: grossly intact (moves all extremities) Skin: No rash on exposed areas, No ulcerations on exposed areas Results/Procedures: Labs Laboratory Tests 01/20/22 05:24: White Blood Count 11.8H, Red Blood Count 3.88L, Hemoglobin 11.3L, Hematocrit 34L , Mean Corpuscular Volume 87, Mean Corpuscular Hemoglobin 29, Mean Corpuscular Hemoglobin Concent 33, Red Cell Distribution Width 14.1, Platelet Count 168, Mean Platelet Volume 12.1, Immature Granulocyte % (Auto) 0, Neutrophils (%) (Auto) 56, Lymphocytes (%) (Auto) 25, Monocytes (%) (Auto) 16H, Eosinophils (%) (Auto) 2, Basophils (%) (Auto) 1, Neutrophils # (Auto) 6.6, Lymphocytes # (Auto) 3.0, Monocytes # (Auto) 1.9H, Eosinophils # (Auto) 0.2, Basophils # (Auto) 0.1, Immature Granulocyte # (Auto) 0.0, Sodium Level 138, Potassium Level 3.9, Chloride Level 108H, Carbon Dioxide Level 17L, Anion Gap 13, Blood Urea Nitrogen 13, Creatinine 0.79, Estimat Glomerular Filtration Rate 102, BUN/Creatinine Ratio 16, Glucose Level 85, Calcium Level 8.5, Corrected Calcium 9.0, Total Bilirubin 0.5, Aspartate Amino Transf (AST/SGOT) 74H, Alanine Aminotransferase (ALT/SGPT) 44, Alkaline Phosphatase 90, Total Protein 6.5, Albumin 3.4 Laboratory Tests 01/19/22 05:09 01/20/22 05:24 A/P: Assessment: NSTEMI - treated with cor intervention (see below) CAD - reports stents x 3 in [place] in 2007; stent x 1 in [place] in 2012 (details unknown) - last cath 01/18/22: LMCA ok, LAD 40-50% mid, LCx with patent prox stent but with 80% stenoses prox and distal to the stent with distal vessel relatively small in caliber, RCA dominant and exhibiting complete occlusion in a long stented segment in the mid to distal vessel, LVEF 35-40%, inf hypo to akinesis, LVEDP 20 mmHg - cor intervention on 01/18/22: successful balloon angioplasty of complete occlusion of a long stented segment in the RCA followed by overlapping ([place]oint 2.75 x 18) of the segment prox to the stented segment ISCHEMIC CARDIOMYOPATHY - see cath report above - echo on 01/18/22: LVEF 45-50%, mild inf hypokinesis, PASP 35-40 mmHg HLD Tobaccoism - cessation advised Plan: * I discussed his CV issues, interventions undertaken, risk factor mod, outpt f/u, and the importance of compliance with meds with him in detail * Continue current regime * Advised to return to ER in case of recurrence of symptoms or new symptoms * Questions answered Clinical Quality Measures AMI/AHF: ASA po Prior to arrival: AMBER Chavez MD FACP [facility] CCDS Jan 20, 2022 13:21
== END 2022-01-20 12:30 | disposition home or self-care (01) | DRG 246 ==
LOC: EDUNIT# 11:29 → ER 11:32 → INTOOBSV 15:12 → CSD 15:12 → OBSVTOIN 01-18 12:55
PROVIDERS: ADMIT Internal Medicine; ATTEND Internal Medicine
PROC: 027034Z Dilation of Coronary Artery, One Artery with Drug-eluting Intraluminal Device, Percutaneous Approach (ICD-10-PCS; principal; 2022-01-18)
PROC: 4A023N7 Measurement of Cardiac Sampling and Pressure, Left Heart, Percutaneous Approach (ICD-10-PCS; 2022-01-18)
PROC: B2111ZZ Fluoroscopy of Multiple Coronary Arteries using Low Osmolar Contrast (ICD-10-PCS; 2022-01-18)
PROC: B2151ZZ Fluoroscopy of Left Heart using Low Osmolar Contrast (ICD-10-PCS; 2022-01-18)
DX: I21.4 Non-ST elevation (NSTEMI) myocardial infarction (principal); K85.90 Acute pancreatitis without necrosis or infection, unspecified; I74.5 Embolism and thrombosis of iliac artery; I16.0 Hypertensive urgency; I25.5 Ischemic cardiomyopathy; I25.110 Atherosclerotic heart disease of native coronary artery with unstable angina pectoris; F17.210 Nicotine dependence, cigarettes, uncomplicated; I10 Essential (primary) hypertension; K21.9 Gastro-esophageal reflux disease without esophagitis; E78.5 Hyperlipidemia, unspecified; I25.2 Old myocardial infarction; Z95.5 Presence of coronary angioplasty implant and graft; Z88.0 Allergy status to penicillin
CPT/HCPCS: 36415; 71045; 74177; 80053; 80061; 83690; 83735; 83874; 83880; 84484; 85025; 85027; 85610; 85730; 93005; 93041; 93306; 93458